=== PATIENT | male | born 1980 | race Two or more races ===

== ENCOUNTER 2024-05-29 23:22 | Inpatient (IN) | payer MEDICAID, MEDICARE, OTHER ==
[~2024-05-29] VITALS: Ht 180.3 cm; Wt 108.1 kg
[2024-05-29 23:57] LABS: Basophils # (auto) 0 10 ^3/uL (0-0.2); Basophils % (auto) 0.2 % (0.0-2.0); Eosinophils # (auto) 0.2 10 ^3/uL (0-0.8); Eosinophils % (auto) 1.6 % (0.0-7.0); Hematocrit 43.7 % (41.0-53.0); Lymphocytes # (auto) 1.7 10 ^3/uL (0.4-5.4); Lymphocytes % (auto) 13.9 % (10.0-50.0); Mean Corpuscular Hemoglobin 27.9 pg (28.0-32.0); Mean Corpuscular Hgb Conc. 32.1 g/dL (32.0-36.0); Mean Corpuscular Volume 86.8 fL (80.0-100.0); Monocytes # (auto) 0.9 10 ^3/uL (0-1.3); Monocytes % (auto) 7.6 % (0.0-12.0); Neutrophils # (auto) 9.3 10 ^3/uL (1.6-8.6); Neutrophils % (auto) 76.7 % (37.0-80.0); Nucleated Red Blood Cells % 0.1 %; Platelet Count (auto) 247 10^3/uL (140-450); Red Blood Cells 5.04 10^6/uL (4.5-5.90); Red Cell Distribution Width 16.3 % (11.8-14.3); White Blood Cell 12.1 10^3/uL (4.4-10.8)
[2024-05-29 23:58] LABS: Chloride 103 mmol/L (98-107); Potassium 3.8 mmol/L (3.5-5.1); Sodium 138 mmol/L (136-145)
[2024-05-29 23:59] LABS: Anion Gap 10 (5-15); Calcium 9.5 mg/dL (8.7-10.4); Carbon Dioxide 25 mmol/L (20-31)
[2024-05-30] VITALS (9 sets, daily range): BP systolic 99; BP diastolic 59; PULSE 107–136; RESP 12–25; O2SAT 94–100
[2024-05-30 00:04] LABS: BUN/Creatinine Ratio 26.4 (10.0-20.0)
[2024-05-30 00:05] LABS: Blood Urea Nitrogen 24 mg/dL (9-23); Glucose 187 mg/dL (74-106)
[2024-05-30] MEDS: MAALOX PLUS or MAALOX 30 ML PO ONE (00:38)
--- NOTE | 2024-05-30 01:13 | ECG ---
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
--- NOTE | 2024-05-30 01:21 | ED.PDOC ---
HPI Comments 43-year-old male with no known past medical history here today with complaints of chest pain that started approximately two days ago. Chest pain was unprovoked. Comes and goes. Nonexertional. Feels like an ache but sometimes also feels sharp. No fevers or trauma. No cough. Does not radiate. No nausea, vomiting, diarrhea. No rashes. Never had this before. Does not smoke cigarettes, drink alcohol every day, nor do drugs. No other pain or symptoms. Chief Complaint: Chest Pain Time Seen by MD: 23:35 Allergies: Coded Allergies: NO KNOWN ALLERGIES (Unverified , 05/29/24) Mode of Arrival: Ambulatory Past Medical History PAST MEDICAL HISTORY: Denies Surgical History: Denies all surgeries Constitutional: denies: chills, diaphoresis, fatigue, fever, malaise, sweats, weakness, others EENTM: denies: blurred vision, double vision, ear bleeding, ear discharge, ear drainage, ear pain, ear ringing, eye pain, eye redness, hearing loss, mouth pain, mouth swelling, nasal discharge, nose bleeding, nose congestion, nose pain, photophobia, tearing, throat pain, throat swelling, voice changes, others Respiratory: denies: cough, hemoptysis, orthopnea, SOB at rest, shortness of breath, SOB with excertion, stridor, wheezing, others Cardiovascular: reports: chest pain; denies: dizzy spells, diaphoresis, Dyspnea on exertion, edema, irregular heart beat, left arm pain, lightheadedness, palpitations, PND, syncope, others Gastrointestinal: denies: abdomen distended, abdominal pain, blood streaked bowels, constipated, diarrhea, dysphagia, difficulty swallowing, hematemesis, melena, nausea, poor appetite, poor fluid intake, rectal bleeding, rectal pain, vomiting, others Genitourinary: denies: burning, dysuria, flank pain, frequency, hematuria, incontinence, penile discharge, penile sore, pain, testicle pain, testicle swelling, urgency, others Neurological: denies: dizziness, fainting, headache, left sided numbness, left sided weakness, numbness, paresthesia, pre-existing deficit, right sided numbness, right sided weakness, seizure, speech problems, tingling, tremors, weakness, others Musculoskeletal: denies: back pain, gout, joint pain, joint swelling, muscle p ain, muscle stiffness, neck pain, others Integumetry: denies: bruises, change in color, change in hair/nails, dryness, laceration, lesions, lumps, rash, wounds, others Allergic/Immunocompromised: denies: Difficulty Healing, Frequent Infections, Hives, Itching, others Hematologic/Lymphatic: denies: anemia, blood clots, easy bleeding, easy bruising, swollen glands, others Psychiatric: denies: anxiety, bipolar disorder, depression, hopeless, panic disorder, schizophrenia, sleepless, suicidal, others Physical Exam General Appearance: No Apparent Distress, Normal HEENT: Normal ENT Inspection, Pharynx Normal, TMs Normal Neck: Full Range of Motion, Non-Tender, Normal, Normal Inspection Respiratory: Chest Non-Tender, Lungs Clear, No Accessory Muscle Use, No Respiratory Distress, Normal Breath Sounds Cardiovascular: No Edema, No JVD, No Murmur, No Gallop, Normal Peripheral Pulses, Regular Rate/Rhythm Breast Exam: Deferred Gastrointestinal: No Organomegaly, Non Tender, No Pulsatile Mass, Normal Bowel Sounds, Soft Genitalia: Deferred Pelvic: Deferred Rectal: Deferred Extremities: No calf tenderness, Normal capillary refill, Normal inspection, Normal range of motion, Non-tender, No pedal edema Musculoskeletal : Apperance: Normal Neurologic: Alert, crystal growing technician II-XII nml as Tested, No Motor Deficits, Normal Affect, Normal Mood, No Sensory Deficits Cerebellar Function: Normal Reflexes: Normal Skin: Dry, Normal Color, Warm Lymphatic: No Adenopathy Was a procedure done? Was a procedure done?: No CP Differential Dx Differential Diagnosis: A-Flutter, Angina, Anxiety / Panic Attack, AV Block 1st Degree, AV Block 2nd Degree, AV Block 3rd Degree, Electrolyte Disorder, Heart Failure, OR, PAC's, PSVT, Pulmonary Embolus, V-Fib, V-Tach, WPW Differential Diagnosis: CHF Differential Diagnosis: Aortic dissection, Esophageal reflux/spasm, Gastritis, Pericarditis X-Ray, Labs, Meds, VS Vital Signs Date Time Temp Pulse Resp B/P (MAP) Pulse Ox O2 Delivery O2 Flow Rate FiO2 05/29/24 23:53 101 05/29/24 23:25 97.8 101 20 127/81 (96) 95 Lab Test 05/30/24 00:40 05/29/24 23:40 Range/Units Troponin I High Sensitivity 57 *H 57 *H </=54 ng/L White Blood Count 12.1 H 4.4-10.8 10^3/uL Red Blood Count 5.04 4.5-5.90 10^6/uL Hemoglobin 14.0 13.5-17.5 g/dL Hematocrit 43.7 41.0-53.0 % Mean Corpuscular Volume 86.8 80.0-100.0 fL Mean Corpuscular Hemoglobin 27.9 L 28.0-32.0 pg Mean Corpuscular Hemoglobin Concent 32.1 32.0-36.0 g/dL Red Cell Distribution Width 16.3 H 11.8-14.3 % Platelet Count 247 140-450 10^3/uL Mean Platelet Volume 7.2 6.9-10.8 fL Neutrophils (%) (Auto) 76.7 37.0-80.0 % Lymphocytes (%) (Auto) 13.9 10.0-50.0 % Monocytes (%) (Auto) 7.6 0.0-12.0 % Eosinophils (%) (Auto) 1.6 0.0-7.0 % Basophils (%) (Auto) 0.2 0.0-2.0 % Neutrophils # (Auto) 9.3 H 1.6-8.6 10 ^3/uL Lymphocytes # (Auto) 1.7 0.4-5.4 10 ^3/uL Monocytes # (Auto) 0.9 0-1.3 10 ^3/uL Eosinophils # (Auto) 0.2 0-0.8 10 ^3/uL Basophils # (Auto) 0 0-0.2 10 ^3/uL Nucleated Red Blood Cells 0.1 % Sodium Level 138 136-145 mmol/L Potassium Level 3.8 3.5-5.1 mmol/L Chloride Level 103 98-107 mmol/L Carbon Dioxide Level 25 20-31 mmol/L Anion Gap 10 5-15 Blood Urea Nitrogen 24 H 9-23 mg/dL Creatinine 0.91 0.700-1.30 mg/dL Glomerular Filtration Rate Calc 106 >90 mL/min BUN/Creatinine Ratio 26.4 H 10.0-20.0 Serum Glucose 187 H 74-106 mg/dL Calcium Level 9.5 8.7-10.4 mg/dL Current Medications Medications (Trade) Dose Ordered Sig/Norberto Route Start Time Stop Time Status Last Admin Al Hydrox/Mg Hydrox/Simethicone (Maalox Plus) 30 ml ONCE ONCE PO 05/30/24 00:00 05/30/24 00:01 DC 05/30/24 00:38 X-Ray, Labs, Meds, VS Comment 43-year-old male with no past medical history here today with complaints of chest pain. Vital signs stable, afebrile. Physical exam as above no acute findings. Labs notable for an elevated troponin to the 50s with a repeat stable. EKG without evidence of STEMI although does have evidence of T-wave inversions as above. Heart score five. Patient was admitted to the hospital for further cardiac risk stratification, telemetry monitoring, and workup of his chest pain. Time of 1ST Reevaluation: 01:19 Reevaluation 1ST: Unchanged Patient Education/Counseling: Diagnosis, Treatment, Prognosis, Need For Follow Up Family Education/Counseling: Diagnosis, Treatment, Prognosis, Need For Follow Up Departure 1 Departure Time of Disposition: 01:20 Impression: Primary Impression: NSTEMI (non-ST elevated myocardial infarction) Disposition: 02 SHORT TERM HOSPITAL Admit to: Tele Condition: Guarded Critical Care Note Critical Care Time?: No Stability Stability form required: No Heart Score Heart Score: Heart Score Response (Comments) Value History Moderate Suspicious 1 EKG Repolarization Disturb 1 Age 45-64 1 Risk Factors 1 or 2 risk factors (Obesity) 1 Troponin 1-2 x's Normal limit 1 Total 5 SOLO GRIDER MD May 30, 2024 01:20
[2024-05-30] MEDS ORDERED: NITROGLYCERIN 0.4 MG SL TAB SL PRN (01:45)
[2024-05-30] MEDS ORDERED: ACETAMINOPHEN 325 MG TAB PO PRN (01:45)
--- NOTE | 2024-05-30 02:01 | DVHHPRES ---
History of Present Illness Resident Creating Document: ASIYA PRUITT RESIDENT History of Present Illness Chava Menezes is a 43-year-old male with a PMH of rheumatoid arthritis, hyperlipidemia, lung nodule presented to the ED with a chief complaint chest pain since one day. Patient reported he has been having correlate, dry cough, mild shortness of breath for last three days but Thursday evening 5:00 p.m. patient is watching television then started having chest pain, left-sided, sharp, 8/10 intensity, aggravated by deep breaths, no relieving factors, no radiation associated with diaphoresis. Patient has never experienced pain like this before. On my assessment patient denies fever, nausea, vomiting, diarrhea, palpitations, abdominal pain, and other associated symptoms. PMH: RA vs Gout, HLD, lung nodule PSH: Spinal fusion Family history: Heart disease, ESRD, diabetes in father Social history: Lives with family. Smokes less than one pack for 27 years and vapes. But denies alcohol and other drug abuse Allergies: No known allergies Home medications: Prednisone 20 mg BID, allopurinol, colchicine 0.6 OD Review of Systems Review of Systems Patient seen and examined at the bedside. Currently patient reporting chest pain, shortness of breath, dry cough, nasal congestion Constitutional: Yes: Weakness Eyes: No: Pain, Vision change, Conjunctivae inflammation, Eyelid inflammation, Other, Redness ENT: No: Ear pain, Ear discharge, Nose pain, Nose discharge, Nose congestion, Mouth pain, Mouth swelling, Throat pain, Throat swelling, Other Respiratory: Cough, Dry, Shortness of breath Cardiovascular: Chest Pain, Edema Gastrointestinal: No: Nausea, Vomiting, Abdominal Pain, Diarrhea, Constipation, Melena, Hematochezia, Other Genitourinary: No Dysuria, No Frequency, No Incontinence, No Hematuria, No Retention, No Other Musculoskeletal: No: other, neck pain, shoulder pain, arm pain, back pain, hand pain, leg pain, foot pain Skin: No: Rash, Lesions, Jaundice, Bruising, Other Neurological: No: Weakness, Numbness, Incoordination, Change in speech, Confusion, Seizures, Other Allergies: Coded Allergies: NO KNOWN ALLERGIES (Unverified , 05/29/24) Exam Vital Signs Vital Signs Date Time Temp Pulse Resp B/P (MAP) Pulse Ox O2 Delivery O2 Flow Rate FiO2 05/30/24 01:17 107 17 99 Room Air* 0 21 05/30/24 01:16 98.4 122/86 (98) 98.4 Exam General: Awake, alert, comfortable appearing, Mild distress. HEENT: Head is normocephalic and atraumatic. Pupils are equal, round, and reactive to light. Extraocular muscles are intact. No nasal discharge. No facial trauma. Intraoral exam shows moist mucous membranes with no tonsillar enlargement or exudate. Neck: Supple with no cervical lymphadenopathy No meningismus. No goiter. Heart: Regular rate without murmur, rub, or gallop. Lungs: Equal breath sounds bilaterally with no wheezing, rales, or rhonchi. There is no chest wall tenderness or instability. Abdomen: No external sign of injury. Bowel sounds are present. Abdomen is soft, nontender. No rebound, no guarding, no rigidity. There are no palpable masses. There is no flank pain on exam. Extremities: Trace edema in BLE. Strong peripheral pulses. There is no clubbing, no cyanosis Skin: No rash. Neurologic: No motor, sensory, or cerebellar deficit, no asterixis. Labs/Xrays Labs Test 05/30/24 00:40 05/29/24 23:40 Range/Units Troponin I High Sensitivity 57 *H </=54 ng/L White Blood Count 12.1 H 4.4-10.8 10^3/uL Red Blood Count 5.04 4.5-5.90 10^6/uL Hemoglobin 14.0 13.5-17.5 g/dL Hematocrit 43.7 41.0-53.0 % Mean Corpuscular Volume 86.8 80.0-100.0 fL Mean Corpuscular Hemoglobin 27.9 L 28.0-32.0 pg Mean Corpuscular Hemoglobin Concent 32.1 32.0-36.0 g/dL Red Cell Distribution Width 16.3 H 11.8-14.3 % Platelet Count 247 140-450 10^3/uL Mean Platelet Volume 7.2 6.9-10.8 fL Neutrophils (%) (Auto) 76.7 37.0-80.0 % Lymphocytes (%) (Auto) 13.9 10.0-50.0 % Monocytes (%) (Auto) 7.6 0.0-12.0 % Eosinophils (%) (Auto) 1.6 0.0-7.0 % Basophils (%) (Auto) 0.2 0.0-2.0 % Neutrophils # (Auto) 9.3 H 1.6-8.6 10 ^3/uL Lymphocytes # (Auto) 1.7 0.4-5.4 10 ^3/uL Monocytes # (Auto) 0.9 0-1.3 10 ^3/uL Eosinophils # (Auto) 0.2 0-0.8 10 ^3/uL Basophils # (Auto) 0 0-0.2 10 ^3/uL Nucleated Red Blood Cells 0.1 % Sodium Level 138 136-145 mmol/L Potassium Level 3.8 3.5-5.1 mmol/L Chloride Level 103 98-107 mmol/L Carbon Dioxide Level 25 20-31 mmol/L Anion Gap 10 5-15 Blood Urea Nitrogen 24 H 9-23 mg/dL Creatinine 0.91 0.700-1.30 mg/dL Glomerular Filtration Rate Calc 106 >90 mL/min BUN/Creatinine Ratio 26.4 H 10.0-20.0 Serum Glucose 187 H 74-106 mg/dL Calcium Level 9.5 8.7-10.4 mg/dL Assessment/Plan Assessment/Plan # rule out ACS # ? NSTEMI likely type 2 -troponins mildly elevated -reviewed EKG showed normal sinus rhythm -chest pain protocol ordered # possible opioid withdrawal versus cocaine withdrawal # opiate and cocaine abuse disorder -UDS positive -supportive treatment # Possible sepsis # R/o G+/- bacterial PNA # rule out flu and COVID-19 -ordered CXR and rapid test -ordered sputum and blood cultures -currently giving azithromycin # history of RA versus gout # uncontrolled type 2 DM with HbA1c 6.7 newly diagnosed -Accu-Cheks and mild ISS Protonix Lovenox Cardiac diet Goals of care discussed with the patient for more than 29 minutes: Full code status Case discussed with Dr. Hawley, patient, spouse and nurse Plan discussed with: Patient, Spouse My Orders Orders - ASIYA PRUITT RESIDENT Procedure Category Date Status Time Admit ADMIT 05/30/24 Transmitted 01:35 Allergies ROBERT 05/30/24 In Process 01:35 Code Status CODE 05/30/24 Transmitted 01:35 Sodium Chloride Lock PHA 05/30/24 In Process (Saline Lock Ns) 06:00 Ondansetron Hcl PHA 05/30/24 In Process (Zofran) 01:45 Enoxaparin Sodium PHA 05/30/24 In Process (Lovenox) 10:00 Complete Blood Count LAB 05/30/24 Logged 04:00 Comprehensive LAB 05/30/24 Logged Metabolic Panel 04:00 Cardiac DIET 05/30/24 Transmitted Diet-2gna,Lofat,Lochol Breakfast Echo 2d Mode Cardiac US 05/30/24 Logged DOP 01:35 Condition: Stable ROBERT 05/30/24 In Process 01:35 Acetaminophen Tablet PHA 05/30/24 In Process (Tylenol Tablet) 01:45 Morphine Sulfate PHA 05/30/24 In Process Injection 01:45 Nitroglycerin PHA 05/30/24 In Process Sublingual (Ntrostat 01:45 Morphine Sulfate PHA 05/30/24 In Process Injection 01:45 Oxygen By Nasal RT 05/30/24 Transmitted Cannula 01:35 Stat Ekg For Chest ROBERT 05/30/24 In Process Pain 01:35 Notify Of Changes ROBERT 05/30/24 In Process From Base 01:35 Auction Clerk For ROBERT 05/30/24 In Process 24 Hours 01:35 Emergency Dysrhythmia ROBERT 05/30/24 In Process Protocol 01:35 Rhythm Strips Once ROBERT 05/30/24 In Process Every Shift 01:35 Hepatic Panel LAB 05/30/24 In Process 01:35 B-Type Natriuretic LAB 05/30/24 In Process Peptide 01:35 Blood Alcohol LAB 05/30/24 In Process 01:35 Covid19 Antigen Noemy LAB 05/30/24 Logged Drug Screen LAB 05/30/24 Logged 01:35 Hemoglobin A1c LAB 05/30/24 In Process 01:35 Lactic Acid W/ Reflex LAB 05/30/24 Logged Order 01:35 Magnesium LAB 05/30/24 In Process 01:35 PTPTT LAB 05/30/24 In Process 01:35 Rapid Influenza A&B LAB 05/30/24 Logged 01:35 Thyroid Stimulating LAB 05/30/24 In Process Hormone 01:35 Urinalysis LAB 05/30/24 Logged 01:35 Lipid Panel LAB 05/30/24 In Process 01:35 Chest Xray 1 View XY 05/30/24 Logged 01:35 Respiratory Culture CRISTINA 05/30/24 Logged W/ Gs 01:35 Blood Culture CRISTINA 05/30/24 Logged 01:35 Pantoprazole PHA 05/30/24 In Process (Protonix) 01:45 Date of Service: May 30, 2024 Billing Provider: RAFA HAWLEY MD Common Visit Codes: [id number] INP/OBS CARE (HIGH) ASIYA PRUITT RESIDENT May 30, 2024 02:01 RAFA HAWLEY MD May 30, 2024 10:34
[2024-05-30] MEDS: ASPirin 81 mg TAB PO ONE (02:12)
[2024-05-30] MEDS: MORPHINE SULFATE INJ 2 MG/ml SYRG IV PRN ×2 (02:12→12:01)
[2024-05-30 02:14] LABS: INR 0.94 (0.9-1.15); Partial Thromboplastin Time 23.4 SEC (24.5-34.5)
[2024-05-30] MEDS: AZITHROMYCIN 500MG/ 250ML 250 ML IV ONE (02:15)
[2024-05-30 02:18] LABS: Alanine Aminotransferase 31 U/L (7-40); Albumin 4.2 g/dL (3.2-4.8); Alkaline Phosphatase 84 U/L (46-116); Bilirubin, Direct 0.2 mg/dL (<0.3); Cholesterol 132 mg/dL (< 200); HDL Cholesterol 42 mg/dL (40-59); LDL Cholesterol 72 mg/dL (< 100); Magnesium 2.2 mg/dL (1.6-2.6); Total Protein 6.2 g/dL (5.7-8.2)
[2024-05-30 02:19] LABS: Aspartate Aminotransferase 11 U/L (13-40); Bilirubin, Total 0.5 mg/dL (0.2-1.0); Blood Alcohol < 3.0 mg/dL (<10); Triglycerides 249 mg/dL (< 150)
[2024-05-30] MEDS: PANTOPRAZOLE 40 MG/10 ML VIAL INJ IV SCH (02:21)
--- NOTE | 2024-05-30 02:33 | DVH ---
CHEST RADIOGRAPH Indication: chest pain Technique: Single frontal view of the chest was obtained Comparison: None IMPRESSION: Heart appears enlarged. The lungs appear clear without focal airspace opacity, effusion, or pneumoth orax
[2024-05-30 02:39] LABS: Lactic Acid w/Reflex 2.5 mmol/L (0.4-2.0)
[2024-05-30 02:39] LABS: Urine Bacteria None Seen /hpf (None Seen)
[2024-05-30 02:55] LABS: Urine Blood Negative /uL (Negative); Urine Clarity Clear (Clear); Urine Color Yellow (Yellow); Urine Hyaline Cast FEW /lpf (0 - 2); Urine Mucus FEW (None Seen); Urine Protein, UAD TRACE (Negative); Urine Specific Gravity 1.031 (1.001-1.035); Urine Squamous Epithelial Cell None Seen /hpf (<5); Urine Urobilinogen Normal (Negative); Urine pH 5.5 (5.0-9.0)
[2024-05-30] MEDS ORDERED: DEXTROSE (50%) 50ML SYRG IV PRN (03:00)
[2024-05-30 03:01] LABS: Basophils # (auto) 0 10 ^3/uL (0-0.2); Basophils % (auto) 0.2 % (0.0-2.0); Eosinophils # (auto) 0.1 10 ^3/uL (0-0.8); Eosinophils % (auto) 0.5 % (0.0-7.0); Hematocrit 42.2 % (41.0-53.0); Hemoglobin 13.7 g/dL (13.5-17.5); Lymphocytes # (auto) 1.8 10 ^3/uL (0.4-5.4); Lymphocytes % (auto) 14.9 % (10.0-50.0); Mean Corpuscular Hgb Conc. 32.4 g/dL (32.0-36.0); Mean Corpuscular Volume 86.3 fL (80.0-100.0); Monocytes # (auto) 1.2 10 ^3/uL (0-1.3); Monocytes % (auto) 9.4 % (0.0-12.0); Neutrophils # (auto) 9.2 10 ^3/uL (1.6-8.6); Nucleated Red Blood Cells % 0.2 %; Platelet Count (auto) 250 10^3/uL (140-450); Red Blood Cells 4.89 10^6/uL (4.5-5.90); Red Cell Distribution Width 16.6 % (11.8-14.3); White Blood Cell 12.3 10^3/uL (4.4-10.8)
[2024-05-30 03:02] LABS: Erythrocyte Sedimentation Rate 7 mm/hr (0-20)
[2024-05-30 03:14] LABS: Amphetamine Screen, Urine Neg (NEGATIVE); Phencyclidine Screen, Urine Neg (NEGATIVE)
[2024-05-30 03:15] LABS: Barbiturate Scree,Urine Neg (NEGATIVE); Benzodiazephine Screen, Urine Neg (NEGATIVE); Cannabinoid Screen, Urine Neg (NEGATIVE); Cocaine Screen, Urine Pos (NEGATIVE); Opiate Scree,Urine Pos (NEGATIVE)
[2024-05-30] MEDS: SODIUM CHLORIDE 0.9% 1,000 ML IV SCH (03:29)
[2024-05-30 03:36] LABS: Alanine Aminotransferase 34 U/L (7-40); Albumin 4.2 g/dL (3.2-4.8); Alkaline Phosphatase 84 U/L (46-116); Anion Gap 14 (5-15); BUN/Creatinine Ratio 26.9 (10.0-20.0); Calcium 9.6 mg/dL (8.7-10.4); Carbon Dioxide 21 mmol/L (20-31); Chloride 104 mmol/L (98-107); Potassium 3.9 mmol/L (3.5-5.1); Sodium 139 mmol/L (136-145); Total Protein 6.3 g/dL (5.7-8.2)
[2024-05-30 03:37] LABS: Bilirubin, Total 0.5 mg/dL (0.2-1.0)
[2024-05-30 03:49] LABS: Aspartate Aminotransferase 13 U/L (13-40); Blood Urea Nitrogen 25 mg/dL (9-23); Glucose 188 mg/dL (74-106)
[2024-05-30] MEDS: SODIUM CHLOR 0.9% PF (SALINE LOCK) 10ML VIAL/SYR IV SCH (06:02)
[2024-05-30] MEDS: InsuLIN REG 1unit/0.01ml Soln (100units/ml) SC SCH (06:26)
[2024-05-30] MEDS: ACCU-CHEK COMFORT CURVE STRIP VI SCH (06:27)
[2024-05-30] MEDS: LORazepam 2MG/ML-1ML VIAL IV PRN (06:41)
[2024-05-30 08:49] LABS: COVID19 ANTIGEN SOFIA FIA NEGATIVE (NEGATIVE)
[2024-05-30 08:50] LABS: Rapid Influenza A Negative (Negative); Rapid Influenza B Negative (Negative)
[2024-05-30] MEDS ORDERED: LEVALBUTEROL HCL 1.25 MG/3 ML NEB NEB SCH (09:00)
[2024-05-30] MEDS ORDERED: IPRATROPIUM BROM 0.5 MG/2.5ML INH SOL NEB SCH (09:00)
[2024-05-30] MEDS ORDERED: AZITHROMYCIN 500MG/ 250ML 250 ML IV SCH (10:00)
--- NOTE | 2024-05-30 10:22 | DVH ---
XY KUB ABDOMEN SINGLE VIEW HISTORY: sbo TECHNICAL DATA: 1 view of the abdomen. COMPARISON: None FINDINGS: Patchy gas is identified within nondistended small bowel. There are no dilated small bowel loops. The re is no abdominal mass effect. The renal and liver shadows are not enlarged. Lumbar spine hardware i s seen. IMPRESSION: Nondilated non obstructive bowel gas pattern.
[2024-05-30] MEDS: ENOXAPARIN SOD 40 MG/0.4 ML SYRINGE SC SCH (10:24)
[2024-05-30 10:34] LABS: Lactic Acid w/Reflex 2.6 mmol/L (0.4-2.0)
--- NOTE | 2024-05-30 10:42 | DVH ---
BILATERAL LOWER EXTREMITY VENOUS DOPPLER CLINICAL HISTORY: r/o dvt Technique: Duplex Doppler evaluation of the deep venous systems of both lower extremities from the co mmon femoral veins to the popliteal veins including color Doppler and spectral/pulsed waveform analys is was performed. COMPARISON: None FINDINGS: The right and left common femoral, superficial femoral, popliteal, posterior tibial veins and trifur cations appear patent with normal augmentation, phasicity, compressibility and color-flow. IMPRESSION: 1. There is no sonographic evidence for DVT in the lower extremities. HS:Y
--- NOTE | 2024-05-30 11:25 | DVHSR ---
APPROVED REPORT EXAM: Two-dimensional and M-mode echocardiogram with Doppler and color Doppler. Blood Pressure: 104/64 mmHg INDICATION To rule out structural heart disease RISK FACTORS Height: 70, Weight: 240 DIMENSIONS LVDd (3.8-5.7cm)LA (2D)4.1 (1.9-4.0cm)Aortic Root4.1 (2.0-3.7cm) LVDs (2.5-4.0cm)LA (MM) (1.9-4.0cm)Aortic Cusp Exc2.1 (1.5-2.0cm) EF (%) 65.0 (55-70%)Rt. Atrium4.0 (1.9-4.0cm)Asc. Aorta cm Mitral Valve MitralMitral Stenosis E wave0.73m/sMV Mean GR.mmHg A wave0.90m/sMV Peak GR.mmHg E/A ratio0.82D MVAcm2 DECEL [id number] 1/2 Njly70dg IVRTmsDop MVA6.60cm2 Aortic Valve Aortic ValveAortic Stenosis V1m/Leilani Mean GR.12mmHg V22.31m/Leilani Peak GR.23mmHg LVOT Diameter2.1 (1.8-2.4cm)Doppler AVAcm2 Pulmonic Valve V21.27m/s Other Information Technically limited study due to body habitus, patient position. Patient was non compliant and kept moving during exam. Conclusion lvef 70% by visual estimate milde LVH normal rv function normal atria no severe valve abnormalities noted
[2024-05-30] MEDS: LEVALBUTEROL HCL 1.25 MG/3 ML NEB NEB SCH (11:51)
[2024-05-30] MEDS: IPRATROPIUM BROM 0.5 MG/2.5ML INH SOL NEB SCH (11:51)
[2024-05-30] MEDS: ONDANSETRON HCL 4 MG/2 ML VIAL IV PRN (12:01)
[2024-05-30] MEDS: cefTRIAXone 1GM/50ML D5W 50 ML IV SCH (12:59)
--- NOTE | 2024-05-30 14:15 | DVHPNRES ---
Progress Note Date Seen: May 30, 2024 Resident Creating Document: NAN THAKUR RESIDENT Medical Necessity Reason Pt with a Central, PICC or Fol: No Subjective Review of Systems Mr. Dean is a 43-year-old male with PMH of spinal fusion surgery 2009, chronic opioid use, rheumatoid arthritis, gout, solitary pulmonary nodule and hyperlipidemia who presented to the ER with a chief complaint of chest pain and shortness of breaths for the past 2 days. He reports using cocaine, last usage was 1 week back. He takes Randall 10/325 mg 4-5 times a day. Patient reports shortness of breaths along with productive greenish cough, orthopnea, paroxysmal nocturnal dyspnea. He sleeps in a recliner per the . also reports snoring. Associated symptoms include generalized fatigue, body ache, tiredness. Patient also reports chest pain, left-sided, sharp in nature increased by deep breaths, no radiation but he has been experiencing diaphoresis. PMH/PSH : See above.. Home medications: Prednisolone 20 mg b.i.d., allopurinol, colchicine 0.6 mg Social history: Lives family, smokes a pack a day for more than 20 years, denies drinking, has been using cocaine, last usage was 1 week back. The patient was previously sober for at least 3 years. Patient seen and examined at the bedside. at the bedside. Telemetry reviewed, shows sinus tachycardia. COVID influenza negative. Started ceftriaxone and azithromycin for likely pneumonia. Nebulized treatment started. Objective vital signs Vital Sign Date Time Temp Pulse Resp B/P (MAP) Pulse Ox O2 Delivery O2 Flow Rate FiO2 05/30/24 12:31 123 16 92/46 05/30/24 12:00 95 05/30/24 11:52 0.0 21 05/30/24 11:51 Room Air 05/30/24 11:00 98.0 98.0 Total Intake and Output 05/29/24 05/29/24 05/30/24 15:00 23:00 07:00 Intake Total 650 ml Balance 650 ml medications Current Medications Medications Dose Ordered Sig/Norberto Route Start Time Stop Time Status Last Admin Dose Admin Sodium Chloride 10 ml Q8HR IV 05/30/24 06:00 05/30/24 13:00 10 ML Ondansetron HCl 4 mg Q4HP PRN IV 05/30/24 01:45 05/30/24 12:01 4 MG Enoxaparin Sodium 40 mg DAILY SC 05/30/24 10:00 05/30/24 10:24 40 MG Acetaminophen 650 mg Q6HP PRN PO 05/30/24 01:45 Morphine Sulfate 2 mg Q4HPRN PRN IV 05/30/24 01:45 05/30/24 12:01 2 MG Nitroglycerin 0.4 mg Q5MINP PRN SL 05/30/24 01:45 Morphine Sulfate 2 mg Q30M PRN IV 05/30/24 01:45 05/30/24 02:12 2 MG Pantoprazole Sodium 40 mg DAILY IV 05/30/24 01:45 05/30/24 10:22 40 MG Diagnostic Test (Pha) 1 strip ACHS 05/30/24 07:00 05/30/24 11:30 1 STRIP Insulin Human Regular ACHS SC 05/30/24 07:00 Dextrose 50 ml UD PRN IV 05/30/24 03:00 Sodium Chloride 1,000 ml @ 100 mls/hr Q10H IV 05/30/24 03:00 05/30/24 12:59 100 MLS/HR Lorazepam 1 mg Q6HP PRN IV 05/30/24 06:45 05/30/24 12:04 1 MG Ipratropium [place] 0.5 mg Q6HR NEB 05/30/24 12:00 05/30/24 11:51 0.5 MG Levalbuterol HCl 0.625 mg Q6HR NEB 05/30/24 12:00 05/30/24 11:51 0.625 MG Ceftriaxone Sodium 50 ml @ 100 mls/hr DAILY@09 IV 05/30/24 12:00 05/30/24 12:59 100 MLS/HR Azithromycin 250 ml @ 125 mls/hr DAILY IV 05/31/24 10:00 Examination Patient lying in bed, in no acute distress General: Obese, afebrile, palor, mucosae are moist Cardiovascular: Regular S1 and S2. No murmurs, gallops or rubs. No JVD elevation. 2 +pitting edema Respiratory: Decreased air entry, no crackles or wheezing heard. Saturating 92 on room air Abdomen: Soft, nontender, nondistended, normoactive bowel sounds, no rebound tenderness, no organomegaly, no masses Genitourinary: Deferred MSK/skin: Mobilizes 4 limbs. Skin is dry and warm Neurological: No motor, no sensitive deficits, normal speech. Pupils are isocoric and reactive. Psych/Mental Status: A/Ox3 laboratory and microbiology Laboratory Tests 05/30/24 02:44 Test 05/30/24 02:44 Range/Units Serum Glucose 188 H 74-106 mg/dL Labs and/or images reviewed: Labs reviewed by me, Image(s) reviewed by me Problem List/Assessment/Plan Problem List/Assessment/Plan Sepsis likely secondary to pneumonia, Gram-positive and negative Acute on chronic COPD exacerbation COPD with pneumonitis Lactic acidosis IV saline 100 mL/hour Nebulized ipratropium and levalbuterol q.6 hourly scheduled Started ceftriaxone and azithromycin 05/30 Respiratory culture pending Chest pain, likely pneumonitis NSTEMI, likely type 2 Troponin 57, downtrending Echo completed 05/30/2024, shows LVEF 70% by visual estimate. Mild LVH. No severe valvular abnormalities Possible cocaine withdrawal Opioid dependence Tele psych consulted Rheumatoid arthritis Gouty arthritis Continue home medication prednisolone 20 mg daily and colchicine 0.6 mg daily Ruled out DVT Doppler negative Uncontrolled type 2 diabetes mellitus-hemoglobin A1c 6.7-newly diagnosed Mild ISS initiated Diabetic education provided Enoxaparin 40 mg sc daily Pantoprazole 40 mg IV daily Plan discussed with patien with the spouse at bedside t in which all questions have been answered Goals of care discussed with patient for more than 26 minutes, full code status Case discussed with Dr. Barba Plan discussed with: Patient, Spouse (The bedside) My Orders My Orders Orders - NAN THAKUR Procedure Category Date Status Time *Tele Psych Consult CONS 05/30/24 Transmitted 08:54 Bilat Lower Dvt US 05/30/24 Resulted 09:00 Kub Abdomen Single XY 05/30/24 Resulted View 09:00 Ipratropium Medneb PHA 05/30/24 In Process (Atrovent Medneb) 12:00 Levalbuterol Hcl PHA 05/30/24 In Process (Xopenex Medneb) 12:00 Ceftriaxone 1gm/50ml PHA 05/30/24 In Process D5w (Rocephin) 12:00 Azithromycin 500mg/ PHA 05/31/24 In Process 250ml (Zithromax 50 10:00 NAN THAKUR May 30, 2024 14:15
[2024-05-30 14:31] LABS: Base Excess 3.7 mmol/L (-2.0-3.0)
[2024-05-30] MEDS: predniSONE 20 MG TAB PO ONE (15:01)
[2024-05-30] MEDS: COLCHICINE 0.6 MG CAP PO ONE (15:01)
[2024-05-30] MEDS: ALLOPURINOL 100 MG TAB PO ONE (16:00)
[2024-05-30] MEDS: predniSONE 20 MG TAB PO SCH (16:00)
[2024-05-31] VITALS (11 sets, daily range): BP systolic 108–120; BP diastolic 78–86; PULSE 80–120; RESP 16–19; TEMP 97.5–98.2; O2SAT 91–100
[2024-05-31 07:39] LABS: Basophils # (auto) 0 10 ^3/uL (0-0.2); Basophils % (auto) 0.2 % (0.0-2.0); Eosinophils # (auto) 0 10 ^3/uL (0-0.8); Hematocrit 42.8 % (41.0-53.0); Hemoglobin 14.3 g/dL (13.5-17.5); Lymphocytes # (auto) 0.9 10 ^3/uL (0.4-5.4); Lymphocytes % (auto) 6.6 % (10.0-50.0); Mean Corpuscular Hemoglobin 28.7 pg (28.0-32.0); Mean Corpuscular Hgb Conc. 33.4 g/dL (32.0-36.0); Monocytes # (auto) 0.4 10 ^3/uL (0-1.3); Monocytes % (auto) 3.3 % (0.0-12.0); Neutrophils # (auto) 11.9 10 ^3/uL (1.6-8.6); Neutrophils % (auto) 89.9 % (37.0-80.0); Platelet Count (auto) 275 10^3/uL (140-450); Red Blood Cells 4.97 10^6/uL (4.5-5.90); Red Cell Distribution Width 16.5 % (11.8-14.3); White Blood Cell 13.2 10^3/uL (4.4-10.8)
[2024-05-31 07:58] LABS: Alanine Aminotransferase 36 U/L (7-40); Anion Gap 10 (5-15); Calcium 9.7 mg/dL (8.7-10.4); Carbon Dioxide 24 mmol/L (20-31); Chloride 103 mmol/L (98-107); Potassium 4.3 mmol/L (3.5-5.1); Sodium 137 mmol/L (136-145)
[2024-05-31 08:00] LABS: BUN/Creatinine Ratio 13.9 (10.0-20.0); Blood Urea Nitrogen 14 mg/dL (9-23); Total Protein 6.8 g/dL (5.7-8.2)
[2024-05-31 08:01] LABS: Albumin 4.5 g/dL (3.2-4.8)
[2024-05-31 08:02] LABS: Bilirubin, Total 0.6 mg/dL (0.2-1.0)
[2024-05-31 08:14] LABS: Aspartate Aminotransferase 12 U/L (13-40); Glucose 182 mg/dL (74-106); Magnesium 2.7 mg/dL (1.6-2.6)
[2024-05-31] MEDS ORDERED: predniSONE 20 MG TAB PO SCH (10:00)
[2024-05-31 10:10] LABS: Alkaline Phosphatase 72 U/L (46-116)
[2024-05-31] MEDS ORDERED: LEVO750T40 PO (10:51)
[2024-05-31] MEDS ORDERED: ALBUAER3 IN (10:53)
[2024-05-31] MEDS ORDERED: IPRIH INH (10:53)
[2024-05-31] MEDS ORDERED: ACET-1882 PO (10:53)
[2024-05-31] MEDS ORDERED: NIC21P TOP (10:53)
[2024-05-31] MEDS ORDERED: COLC1CAP PO (11:36)
[2024-05-31] MEDS ORDERED: GABA-1250 PO (11:36)
[2024-05-31] MEDS ORDERED: ALL100T PO (11:36)
[2024-05-31] MEDS ORDERED: PRED20TA2 PO (11:36)
[2024-05-31] MEDS: COLCHICINE 0.6 MG CAP PO SCH (12:03)
[2024-05-31] MEDS: ALLOPURINOL 100 MG TAB PO SCH (12:03)
[2024-05-31] MEDS: NICOTINE 21MG/24 HR TOPICAL PATCH TD SCH (12:04)
[2024-05-31] MEDS: AZITHROMYCIN 500MG/ 250ML 250 ML IV SCH (12:25)
[2024-05-31] MEDS ORDERED: HYDROcodone-ACET 10/325MG TAB PO PRN ×2 (14:30→14:45)
--- NOTE | 2024-05-31 14:37 | ECG ---
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
--- NOTE | 2024-05-31 15:06 | DVHINCON2 ---
Date of Service if different f: May 31, 2024 Time of Service: 14:45 Consultation ([facility]) Consulting Physician: MADDY ROMERO MD Labs Laboratory Tests Test 05/29/24 23:40 05/30/24 01:55 05/30/24 01:57 05/30/24 02:38 Prothrombin Time 10.0 sec (9.3-11.8) Prothromb Time International Ratio 0.94 (0.9-1.15) Activated Partial Thromboplast Time 23.4 SEC (24.5-34.5) Hemoglobin A1c 6.7 % A1C (<5.7) Direct Bilirubin 0.2 mg/dL (<0.3) B-Type Natriuretic Peptide 8.47 pg/mL (0-100) Triglycerides Level 249 mg/dL (< 150) Cholesterol Level 132 mg/dL (< 200) LDL Cholesterol 72 mg/dL (< 100) HDL Cholesterol 42 mg/dL (40-59) Thyroid Stimulating Hormone (TSH) 2.37 uIU/mL (0.55-4.78) Plasma/Serum Blood Alcohol < 3.0 mg/dL (<10) D-Dimer, Quantitative 0.33 mg/L FEU (0.0-0.49) Erythrocyte Sedimentation Rate 7 mm/hr (0-20) C-Reactive Protein High Sensitivity 1.20 mg/dL (<1.0) Urine Color Yellow (Yellow) Urine Clarity Clear (Clear) Urine pH 5.5 (5.0-9.0) Urine Specific [place] 1.031 (1.001-1.035) Urine Protein Trace (Negative) Urine Ketones Negative (Negative) Urine Blood Negative /uL (Negative) Urine Nitrite Negative (Negative) Urine Bilirubin Negative (Negative) Urine Urobilinogen Normal mg/dL (Negative) Urine Leukocyte Esterase Negative /uL (Negative) Urine RBC None seen /hpf (0 - 3) Urine Microscopic WBC /HPF (0-3) Urine Squamous Epithelial Cells None seen /hpf (<5) Urine Bacteria None seen /hpf (None Seen) Urine Hyaline Casts Few /lpf (0 - 2) Urine Mucus Few (None Seen) Urine Glucose Normal mg/dL (Normal) Urine Opiates Screen Pos (NEGATIVE) Urine Fentanyl Screen Neg (NEGATIVE) Urine Barbiturates Screen Neg (NEGATIVE) Urine Phencyclidine Screen Neg (NEGATIVE) Urine Amphetamines Screen Neg (NEGATIVE) Urine Benzodiazepines Screen Neg (NEGATIVE) Urine Cocaine Screen Pos (NEGATIVE) Urine Cannabinoids Screen Neg (NEGATIVE) Test 05/30/24 02:44 05/30/24 07:49 05/30/24 14:27 05/30/24 15:50 Troponin I High Sensitivity 53 ng/L (</=54) Influenza Type A Antigen Negative (Negative) Influenza Type B Antigen Negative (Negative) SARS-CoV-2 Antigen (Rapid) Negative (NEGATIVE) Blood Gas Specimen Type Arterial Blood Gas Sample Site Right radial Blood Gas Patient Temperature 37.0 Arterial Blood Date Drawn [id number] Arterial Blood pH 7.489 (7.350-7.450) Arterial Blood Partial Pressure CO2 36.1 mmHg (35.0-48.0) Arterial Blood Partial Pressure O2 66.1 mmHg (83.0-108.0) Arterial Blood HCO3 26.8 mmol/L (21.0-28.0) Arterial Blood Oxygen Saturation 94.3 % (94.0-98.0) Arterial Blood Base Excess 3.7 mmol/L (-2.0-3.0) Arterial Blood Oxyhemoglobin 92.8 % (94.0-98.0) Arterial Blood Carboxyhemoglobin 1.0 % (0.5-1.5) Arterial Blood Methemoglobin 0.6 % (0.0-1.5) Derrek Test Yes Blood Gas Total Hemoglobin 14.90 g/dL (13.5-17.5) Blood Gas Modality Room air FiO2 % 21.0 Lactic Acid Level 1.6 mmol/L (0.4-2.0) Test 05/30/24 17:58 05/31/24 05:20 Bedside Glucose 213 mg/dl (70-106) White Blood Count 13.2 10^3/uL (4.4-10.8) Red Blood Count 4.97 10^6/uL (4.5-5.90) Hemoglobin 14.3 g/dL (13.5-17.5) Hematocrit 42.8 % (41.0-53.0) Mean Corpuscular Volume 86.0 fL (80.0-100.0) Mean Corpuscular Hemoglobin 28.7 pg (28.0-32.0) Mean Corpuscular Hemoglobin Concent 33.4 g/dL (32.0-36.0) Red Cell Distribution Width 16.5 % (11.8-14.3) Platelet Count 275 10^3/uL (140-450) Mean Platelet Volume 7.7 fL (6.9-10.8) Neutrophils (%) (Auto) 89.9 % (37.0-80.0) Lymphocytes (%) (Auto) 6.6 % (10.0-50.0) Monocytes (%) (Auto) 3.3 % (0.0-12.0) Eosinophils (%) (Auto) 0.0 % (0.0-7.0) Basophils (%) (Auto) 0.2 % (0.0-2.0) Neutrophils # (Auto) 11.9 10 ^3/uL (1.6-8.6) Lymphocytes # (Auto) 0.9 10 ^3/uL (0.4-5.4) Monocytes # (Auto) 0.4 10 ^3/uL (0-1.3) Eosinophils # (Auto) 0 10 ^3/uL (0-0.8) Basophils # (Auto) 0 10 ^3/uL (0-0.2) Nucleated Red Blood Cells 0.0 % Sodium Level 137 mmol/L (136-145) Potassium Level 4.3 mmol/L (3.5-5.1) Chloride Level 103 mmol/L (98-107) Carbon Dioxide Level 24 mmol/L (20-31) Anion Gap 10 (5-15) Blood Urea Nitrogen 14 mg/dL (9-23) Creatinine 1.01 mg/dL (0.700-1.30) Glomerular Filtration Rate Calc 93 mL/min (>90) BUN/Creatinine Ratio 13.9 (10.0-20.0) Serum Glucose 182 mg/dL (74-106) Calcium Level 9.7 mg/dL (8.7-10.4) Magnesium Level 2.7 mg/dL (1.6-2.6) Total Bilirubin 0.6 mg/dL (0.2-1.0) Aspartate Amino Transf (AST/SGOT) 12 U/L (13-40) Alanine Aminotransferase (ALT/SGPT) 36 U/L (7-40) Alkaline Phosphatase 72 U/L (46-116) Total Protein 6.8 g/dL (5.7-8.2) Albumin 4.5 g/dL (3.2-4.8) Microbiology Date/Time Source Procedure Growth Status 05/30/24 01:57 Blood Blood Culture - Preliminary NO GROWTH AFTER 24 HOURS OF INCUBATION. Resulted Appearance: Stated age Psychomotor activity: WNL Behavioral: Cooperative Eye contact: Appropriate Speech: WNL Affect: Appropriate Mood: Euthymic Thought processes: Linear/Goal-directed Suicidal ideations: Absent Homicidal ideations: Absent Orientation: Person, Place, Time, Situation Memory intact: Recent Intellect: Average Abstractability: WNL Concentration: Adequate Attention: Adequate Judgement: WNL Insight: Good Vitals Vital Signs Date Time Temp Pulse Resp B/P (MAP) Pulse Ox O2 Delivery O2 Flow Rate FiO2 05/31/24 12:09 95 16 100 05/31/24 12:03 Nasal Cannula 2.0 05/31/24 12:03 28 05/31/24 11:00 97.8 120/80 (93) 97.8 Current medications Current Medications Medications Dose Ordered Sig/Norberto Route Start Time Stop Time Status Last Admin Dose Admin Sodium Chloride 10 ml Q8HR IV 05/30/24 06:00 05/31/24 06:08 10 ML Ondansetron HCl 4 mg Q4HP PRN IV 05/30/24 01:45 05/30/24 12:01 4 MG Enoxaparin Sodium 40 mg DAILY SC 05/30/24 10:00 05/31/24 12:03 40 MG Acetaminophen 650 mg Q6HP PRN PO 05/30/24 01:45 Morphine Sulfate 2 mg Q4HPRN PRN IV 05/30/24 01:45 05/30/24 22:03 2 MG Nitroglycerin 0.4 mg Q5MINP PRN SL 05/30/24 01:45 Morphine Sulfate 2 mg Q30M PRN IV 05/30/24 01:45 05/30/24 02:12 2 MG Pantoprazole Sodium 40 mg DAILY IV 05/30/24 01:45 05/31/24 12:03 40 MG Diagnostic Test (Pha) 1 strip ACHS 05/30/24 07:00 05/31/24 06:53 1 STRIP Insulin Human Regular ACHS SC 05/30/24 07:00 05/30/24 22:02 6 UNITS Dextrose 50 ml UD PRN IV 05/30/24 03:00 Sodium Chloride 1,000 ml @ 100 mls/hr Q10H IV 05/30/24 03:00 05/31/24 09:22 100 MLS/HR Lorazepam 1 mg Q6HP PRN IV 05/30/24 06:45 05/30/24 22:25 1 MG Ipratropium [place] 0.5 mg Q6HR NEB 05/30/24 12:00 05/31/24 12:03 0.5 MG Levalbuterol HCl 0.625 mg Q6HR NEB 05/30/24 12:00 05/31/24 12:03 0.625 MG Ceftriaxone Sodium 50 ml @ 100 mls/hr DAILY@09 IV 05/30/24 12:00 05/31/24 09:22 100 MLS/HR Azithromycin 250 ml @ 125 mls/hr DAILY IV 05/31/24 10:00 05/31/24 12:25 125 MLS/HR Colchicine 0.6 mg DAILY PO 05/31/24 10:00 05/31/24 12:03 0.6 MG Prednisone 20 mg BID PO 05/30/24 14:45 05/31/24 12:03 20 MG Allopurinol 100 mg DAILY PO 05/31/24 10:00 05/31/24 12:03 100 MG Nicotine 1 patch DAILY TD 05/31/24 10:00 Treatment plan discussed: With staff Medication adjusted: No Labs ordered: No Psychotherapy provided: No Type: Voluntary History of Present Illness Reason for Consult : psychiatric evaluation PER H&P: Chava Menezes is a 43-year-old male with a PMH of rheumatoid arthritis, hyperlipidemia, lung nodule presented to the ED with a chief complaint chest pain since one day. Patient reported he has been having correlate, dry cough, mild shortness of breath for last three days but Thursday evening 5:00 p.m. patient is watching television then started having chest pain, left-sided, sharp, 8/10 intensity, aggravated by deep breaths, no relieving factors, no radiation associated with diaphoresis. Patient has never experienced pain like this before. On my assessment patient denies fever, nausea, vomiting, diarrhea, palpitations, abdominal pain, and other associated symptoms. PSYCHIATRIST HPI: The patient was seen and evaluated at [facility] via telepsychiatry platform. 43 yr old male reported that he doesn't feel like depression is affecting him now. He denied having anxiety symptoms and feels like he has been okay. He denied having anxiety attacks. He stated he will get hot and sweaty sometimes, but that goes away not in relation to anything in particular. He noted he uses [place] daily for pain in his back and hands. He denied any other substance use other than for pain control. He denied having suicidal and homicidal ideation and denied auditory and visual hallucinations. Past Psychiatric History: Diagnosed with depression in 2010 after back surgery, he had been on medication because the back was affecting his work and family. Current psych medications: none Past Medical History : RA, hyperlipidemia, three spinal fusions, gout Substance use: Uses opiates daily (norco) for back pain. Denied use of alcohol or other substances Social History : Lives with family. DIAGNOSIS: Chronic pain Formulation: This 43 yr old male appears to suffer from chronic pain for which he regularly takes opiates. He does not appear to suffer from depression, anxiety or other mental illness. Plan: 1. Safety. The patient is a low risk for self harm and may be managed as an outpatient. 2. Legal-voluntary. 3. Medications: none indicated at this time. If chronic pain continues to be an issue, duloxetine 30mg qam could help reduce the pain. 4. Case discussed with STALIN Soto. 5. Please recontact psychiatry for further follow up or reevaluation. Assessment/Diagnosis/Plan Reviewed: Labs, Medications, Previous Orders MADDY ROMERO MD May 31, 2024 13:56
--- NOTE | 2024-05-31 15:43 | DVHDSRES ---
Discharge Summary Date of Admission Resident Creating Document: NAN THAKUR RESIDENT May 30, 2024 at 01:35 Date of Discharge: May 31, 2024 Labs/Diagnostic Data: Laboratory Results Test 05/31/24 05:20 05/30/24 17:58 05/30/24 15:50 05/30/24 14:27 White Blood Count 13.2 10^3/uL (4.4-10.8) Red Blood Count 4.97 10^6/uL (4.5-5.90) Hemoglobin 14.3 g/dL (13.5-17.5) Hematocrit 42.8 % (41.0-53.0) Mean Corpuscular Volume 86.0 fL (80.0-100.0) Mean Corpuscular Hemoglobin 28.7 pg (28.0-32.0) Mean Corpuscular Hemoglobin Concent 33.4 g/dL (32.0-36.0) Red Cell Distribution Width 16.5 % (11.8-14.3) Platelet Count 275 10^3/uL (140-450) Mean Platelet Volume 7.7 fL (6.9-10.8) Neutrophils (%) (Auto) 89.9 % (37.0-80.0) Lymphocytes (%) (Auto) 6.6 % (10.0-50.0) Monocytes (%) (Auto) 3.3 % (0.0-12.0) Eosinophils (%) (Auto) 0.0 % (0.0-7.0) Basophils (%) (Auto) 0.2 % (0.0-2.0) Neutrophils # (Auto) 11.9 10 ^3/uL (1.6-8.6) Lymphocytes # (Auto) 0.9 10 ^3/uL (0.4-5.4) Monocytes # (Auto) 0.4 10 ^3/uL (0-1.3) Eosinophils # (Auto) 0 10 ^3/uL (0-0.8) Basophils # (Auto) 0 10 ^3/uL (0-0.2) Nucleated Red Blood Cells 0.0 % Sodium Level 137 mmol/L (136-145) Potassium Level 4.3 mmol/L (3.5-5.1) Chloride Level 103 mmol/L (98-107) Carbon Dioxide Level 24 mmol/L (20-31) Anion Gap 10 (5-15) Blood Urea Nitrogen 14 mg/dL (9-23) Creatinine 1.01 mg/dL (0.700-1.30) Glomerular Filtration Rate Calc 93 mL/min (>90) BUN/Creatinine Ratio 13.9 (10.0-20.0) Serum Glucose 182 mg/dL (74-106) Calcium Level 9.7 mg/dL (8.7-10.4) Magnesium Level 2.7 mg/dL (1.6-2.6) Total Bilirubin 0.6 mg/dL (0.2-1.0) Aspartate Amino Transferase (AST) 12 U/L (13-40) Alanine Aminotransferase (ALT) 36 U/L (7-40) Alkaline Phosphatase 72 U/L (46-116) Total Protein 6.8 g/dL (5.7-8.2) Albumin 4.5 g/dL (3.2-4.8) POC Glucose 213 mg/dl (70-106) Lactic Acid Level 1.6 mmol/L (0.4-2.0) Blood Gas Specimen Type Arterial Blood Gas Sample Site Right radial Blood Gas Patient Temperature 37.0 Arterial Blood Date Drawn [id number] Arterial Blood pH 7.489 (7.350-7.450) Arterial Blood Partial Pressure CO2 36.1 mmHg (35.0-48.0) Arterial Blood Partial Pressure O2 66.1 mmHg (83.0-108.0) Arterial Blood HCO3 26.8 mmol/L (21.0-28.0) Arterial Blood Oxygen Saturation 94.3 % (94.0-98.0) Arterial Blood Base Excess 3.7 mmol/L (-2.0-3.0) Arterial Blood Oxyhemoglobin 92.8 % (94.0-98.0) Arterial Blood Carboxyhemoglobin 1.0 % (0.5-1.5) Arterial Blood Methemoglobin 0.6 % (0.0-1.5) Derrek Test Yes Blood Gas Total Hemoglobin 14.90 g/dL (13.5-17.5) Blood Gas Modality Room air FiO2 % 21.0 Test 05/30/24 07:49 05/30/24 02:44 05/30/24 02:38 05/30/24 01:57 Influenza Type A Antigen Negative (Negative) Influenza Type B Antigen Negative (Negative) SARS-CoV-2 Antigen (Rapid) Negative (NEGATIVE) Troponin I High Sensitivity 53 ng/L (</=54) Urine Color Yellow (Yellow) Urine Clarity Clear (Clear) Urine pH 5.5 (5.0-9.0) Urine Specific [place] 1.031 (1.001-1.035) Urine Protein Trace (Negative) Urine Ketones Negative (Negative) Urine Blood Negative /uL (Negative) Urine Nitrite Negative (Negative) Urine Bilirubin Negative (Negative) Urine Urobilinogen Normal mg/dL (Negative) Urine Leukocyte Esterase Negative /uL (Negative) Urine RBC None seen /hpf (0 - 3) Urine Microscopic WBC /HPF (0-3) Urine Squamous Epithelial Cells None seen /hpf (<5) Urine Bacteria None seen /hpf (None Seen) Urine Hyaline Casts Few /lpf (0 - 2) Urine Mucus Few (None Seen) Urine Glucose Normal mg/dL (Normal) Urine Opiates Screen Pos (NEGATIVE) Urine Fentanyl Screen Neg (NEGATIVE) Urine Barbiturates Screen Neg (NEGATIVE) Urine Phencyclidine Screen Neg (NEGATIVE) Urine Amphetamines Screen Neg (NEGATIVE) Urine Benzodiazepines Screen Neg (NEGATIVE) Urine Cocaine Screen Pos (NEGATIVE) Urine Cannabinoids Screen Neg (NEGATIVE) Erythrocyte Sedimentation Rate 7 mm/hr (0-20) C-Reactive Protein High Sensitivity 1.20 mg/dL (<1.0) Test 05/30/24 01:55 05/29/24 23:40 D-Dimer, Quantitative 0.33 mg/L FEU (0.0-0.49) Prothrombin Time 10.0 sec (9.3-11.8) Prothrombin Time INR 0.94 (0.9-1.15) Activated Partial Thromboplast Time 23.4 SEC (24.5-34.5) Hemoglobin A1c 6.7 % A1C (<5.7) Direct Bilirubin 0.2 mg/dL (<0.3) B-Type Natriuretic Peptide 8.47 pg/mL (0-100) Triglycerides Level 249 mg/dL (< 150) Cholesterol Level 132 mg/dL (< 200) LDL Cholesterol 72 mg/dL (< 100) HDL Cholesterol 42 mg/dL (40-59) Thyroid Stimulating Hormone (TSH) 2.37 uIU/mL (0.55-4.78) Plasma/Serum Blood Alcohol < 3.0 mg/dL (<10) Other Laboratory Tests 05/31/24 05:20 Brief Hx & Hospital Course: Mr. Larsen is a 43-year-old male with PMH of spinal fusion surgery 2009, chronic opioid use, rheumatoid arthritis, gout, solitary pulmonary nodule and hyperlipidemia who presented to the ER with a chief complaint of chest pain and shortness of breaths for the past 2 days. He reports using cocaine, last usage was 1 week back. He takes [place] 10/325 mg 4-5 times a day. Patient reports shortness of breaths along with productive greenish cough, orthopnea, paroxysmal nocturnal dyspnea. He sleeps in a recliner per the . also reports snoring. Associated symptoms include generalized fatigue, body ache, tiredness. Patient also reports chest pain, left-sided, sharp in nature increased by deep breaths, no radiation but he has been experiencing diaphoresis. PMH/PSH : See above.. Home medications: Prednisolone 20 mg b.i.d., allopurinol, colchicine 0.6 mg Social history: Lives family, smokes a pack a day for more than 20 years, denies drinking, has been using cocaine, last usage was 1 week back. The patient was previously sober for at least 3 years. Patient seen and examined at the bedside. at the bedside. Telemetry reviewed, shows sinus tachycardia. COVID influenza negative. Started ceftriaxone and azithromycin for likely pneumonia. Nebulized treatment started. During the hospitalization, patient was diagnosed with pneumonia, mixed Gram- positive and negative and therefore started on IV saline, nebulized treatments and ceftriaxone and azithromycin which he received for 2 days. Patient had lactic acidosis which resolved with IV fluids. He had NSTEMI likely type 2, echocardiogram completed shows LVEF 70% by visual estimate. Mild LVH. No severe valvular abnormalities. Tele psych was consulted for cocaine use and opiate dependence, no suicidal or homicidal ideations and no medications were initiated med tele psych. He was counseled extensively regarding avoiding cocaine in his smoking cessation for more than 28 minutes, nicotine patch was started and prescribed on discharge. Continuous home medication prednisolone 20 mg b.i.d. and colchicine 0.6 mg daily along with allopurinol 100 mg. Diabetic education was provided and mild ISS was initiated during the hospital stay. 05/31/2024-patient is hemodynamically stable, clinically stable, saturating 94 on room air, therefore is being discharged home with the strong recommendations to follow up with primary care physician, discharge clinic, transport rn, sleep physician and business systems technician within the next 2 weeks. Patient is discharged on Levaquin tablet, nicotine patches, levalbuterol and ipratropium inhalers. Discharge diagnosis: Sepsis likely secondary to pneumonia, Gram-positive and negative Acute on chronic COPD exacerbation COPD with pneumonitis Lactic acidosis Chest pain, likely pneumonitis NSTEMI, likely type 2 Possible cocaine withdrawal Opioid dependence Rheumatoid arthritis Gouty arthritis Ruled out DVT Uncontrolled type 2 diabetes mellitus-hemoglobin A1c 6.7-newly diagnosed Operations or Procedures ORDERING PHYSICIAN: NAN THAKUR PROCEDURE(s): BLDVT - BiLat Lower DVT REASON: r/o dvt ORDER NUMBER(s): [id number], ACCESSION NUMBER(s): [id number] BILATERAL LOWER EXTREMITY VENOUS DOPPLER CLINICAL HISTORY: r/o dvt Technique: Duplex Doppler evaluation of the deep venous systems of both lower extremities from the common femoral veins to the popliteal veins including color Doppler and spectral/pulsed waveform analysis was performed. COMPARISON: None FINDINGS: The right and left common femoral, superficial femoral, popliteal, posterior tibial veins and trifurcations appear patent with normal augmentation, phasicity, compressibility and color-flow. IMPRESSION: 1. There is no sonographic evidence for DVT in the lower extremities. HS:Y ATED BY: GALO CADET MD DICTATED DATE/TIME: 05/30/24 1040 SIGNED BY: GALO CADET MD SIGNED DATE/TIME: 05/30/24 1040 CC: ORDERING PHYSICIAN: NAN THAKUR PROCEDURE(s): KUB - KUB ABDOMEN SINGLE VIEW REASON: ?sbo ORDER NUMBER(s): [id number], ACCESSION NUMBER(s): [id number] XY KUB ABDOMEN SINGLE VIEW HISTORY: sbo TECHNICAL DATA: 1 view of the abdomen. COMPARISON: None FINDINGS: Patchy gas is identified within nondistended small bowel. There are no dilated small bowel loops. There is no abdominal mass effect. The renal and liver shadows are not enlarged. Lumbar spine hardware is seen. IMPRESSION: Nondilated non obstructive bowel gas pattern. ATED BY: ANGEL ROSS MD DICTATED DATE/TIME: 05/30/24 1019 SIGNED BY: ANGEL ROSS MD SIGNED DATE/TIME: 05/30/24 1019 CC: Condition at Discharge: Stable Final Diagnosis/Problems List Sepsis likely secondary to pneumonia, Gram-positive and negative Acute on chronic COPD exacerbation COPD with pneumonitis Lactic acidosis Chest pain, likely pneumonitis NSTEMI, likely type 2 Possible cocaine withdrawal Opioid dependence Rheumatoid arthritis Gouty arthritis Ruled out DVT Uncontrolled type 2 diabetes mellitus-hemoglobin A1c 6.7-newly diagnosed Discharge Disposition: Home Discharge Instruct/Medications Diet: Regular, Consistent carbohydrate Activity: No Restrictions, As Tolerated Follow Up/Referral: Follow up primary care physician within 7 days Follow up with business systems technician as outpatient for spirometry Follow up with sleep study for outpatient sleep study possible sleep apnea Follow up with the transport rn as outpatient Follow up with discharge clinic within 7 days Medications: Per EMR Discharge Statement: "Patient was advised to return to the ER or call 911 if any headaches, dizziness, shortness of breath, chest pain, abdominal pain, bleeding, fevers, or worsening of medical condition. Patient was counseled about treatment plan, medications, possible side effects, patientverbalized understanding. All questions were answered to the best of my ability. This discharge took greater then 30 minutes in planning, reviewing documentation, counseling the patient, and discussing with other team members." ASSESSMENT ASSESSMENT Assessment Sepsis likely secondary to pneumonia, Gram-positive and negative Acute on chronic COPD exacerbation COPD with pneumonitis Lactic acidosis Chest pain, likely pneumonitis NSTEMI, likely type 2 Cocaine use dependence Opioid dependence Tobacco use dependence Rheumatoid arthritis Gouty arthritis NAN THAKUR RESIDENT May 31, 2024 15:43
== END 2024-05-31 17:20 | disposition home or self-care (01) | DRG 720 ==
LOC: ER 23:22 → OVERFLOW 05-30 01:35 → TELE-EAST 05-31 09:46
PROVIDERS: ADMIT Student in an Organized Health Care Education/Training Program; ATTEND Student in an Organized Health Care Education/Training Program
DX: A41.59 Other Gram-negative sepsis (principal); I21.A1 Myocardial infarction type 2; J15.69 Pneumonia due to other Gram-negative bacteria; J15.9 Unspecified bacterial pneumonia; E87.20 Acidosis, unspecified; J44.0 Chronic obstructive pulmonary disease with (acute) lower respiratory infection; Z20.822 Contact with and (suspected) exposure to COVID-19; J44.1 Chronic obstructive pulmonary disease with (acute) exacerbation; E11.9 Type 2 diabetes mellitus without complications; M10.9 Gout, unspecified; E78.5 Hyperlipidemia, unspecified; F32.A Depression, unspecified; F14.23 Cocaine dependence with withdrawal; F41.9 Anxiety disorder, unspecified; G89.29 Other chronic pain; J98.4 Other disorders of lung; Z79.899 Other long term (current) drug therapy
CPT/HCPCS: 36415; 36600; 74018; 80048; 80053; 80061; 80076; 80307; 80320; 81001; 82805; 82962; 83036; 83605; 83735; 83880; 84443; 84484; 85025; 85379; 85610; 85652; 85730; 86141; 87040; 87426; 87804; 93005; 93306; 93970; 94640; G0378; J1815; J2405; J2470

== ENCOUNTER → 2024-06-30 | Outpatient (CLI) | payer MEDICAID ==
[~2024-06-30] MED LIST: ACET-1882 PO; ALBUAER3 IN; ALL100T PO; COLC1CAP PO; GABA-1250 PO; IPRIH INH; LEVO750T40 PO; NIC21P TOP; PRED20TA2 PO
[2024-06-30 10:39] LABS: Creatinine, Urine 223.68 mg/dL (30.0-125.0)
[2024-06-30 10:46] LABS: Urine Bacteria FEW /hpf (None Seen); Urine Blood Negative /uL (Negative); Urine Clarity Clear (Clear); Urine Color Yellow (Yellow); Urine Mucus FEW (None Seen); Urine Protein, UAD TRACE (Negative); Urine Specific Gravity 1.023 (1.001-1.035); Urine Squamous Epithelial Cell FEW /hpf (<5); Urine Urobilinogen Normal (Negative); Urine WBC 1 /HPF (0-3); Urine pH 5.5 (5.0-9.0)
[2024-06-30 10:47] LABS: Amphetamine Screen, Urine Neg (NEGATIVE); Barbiturate Scree,Urine Neg (NEGATIVE); Benzodiazephine Screen, Urine Neg (NEGATIVE); Cocaine Screen, Urine Neg (NEGATIVE); Opiate Scree,Urine Pos (NEGATIVE); Phencyclidine Screen, Urine Neg (NEGATIVE)
[2024-06-30 10:48] LABS: Cannabinoid Screen, Urine Neg (NEGATIVE)
[2024-06-30 11:34] LABS: Uric Acid 5.2 mg/dL (3.7-9.2)
[2024-07-01 08:07] LABS: Rheumatoid Arthritis Factor 20.9 IU/mL (<14.0)
== END | disposition home or self-care (01) ==
LOC: LAB 09:56
PROVIDERS: ATTEND Internal Medicine
DX: M05.00 Felty's syndrome, unspecified site (principal)
CPT/HCPCS: 36415; 80061; 80307; 81001; 82043; 82570; 84550; 86200; 86431

== ENCOUNTER 2024-07-22 22:35 | Emergency (ER) | payer MEDICAID ==
[~2024-07-22] VITALS: Ht 180.3 cm; Wt 109.1 kg
--- NOTE | 2024-07-22 22:40 | ECG ---
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
--- NOTE | 2024-07-22 23:07 | ED.PDOC ---
HPI Comments 43-year-old male came to ER for chest pains. Patient was discharged your last May 31, 2024, and was diagnosed with Sepsis likely secondary to pneumonia, Gram-positive and negative, 2. Acute on chronic COPD exacerbation, 3. COPD with pneumonitis, 4. Lactic acidosis, 5. Chest pain, likely pneumonitis, 6. NSTEMI, likely type 2, 7. Possible cocaine withdrawal, 8. Opioid dependence, 9. Rheumatoid arthritis, 10. Gouty arthritis, 11. Ruled out DVT, 12. Uncontrolled type 2 diabetes mellitus. States he has been experiencing intermittent episodes of left-sided chest pains, pressure, nonradiating the entire day, associated with generalized body malaise and palpitations. Patient denies using any pro hibited drugs recently. Patient was tachycardic on scene 129 beats per minute Chief Complaint: Palpitations Time Seen by MD: 23:06 Reviewed Notes: Nurses Notes Allergies: Coded Allergies: NO KNOWN ALLERGIES (Unverified , 05/29/24) Home Meds Active Scripts Metformin Hydrochloride (Metformin Hcl) 1,000 Mg Tab, 1 TAB PO BID for 90 Days, #180 TAB 5 Refills Prov:JOYCE NIXON MD 07/23/24 Acetaminophen (Acetaminophen) 325 Mg Tab, 650 MG PO BID PRN for 30 Days, #120 TAB 0 Refills Prov:NAN THAKUR 05/31/24 Nicotine (Nicoderm 21MG/24HR) 1 Patch Ph, 1 PATCH TOP DAILY for 30 Days, #28 PATCH 0 Refills Prov:NAN THAKUR 05/31/24 Ipratropium [place] Hfa (Atrovent Hfa) 17 Mcg Aer, 2 PUFF INH QID for 30 Days, #12.9 GRAMS 0 Refills Prov:NAN THAKUR 05/31/24 Albuterol Sulfate (VENTOLIN MDI) 90 Mcg Ih, 90 MCG IN DAILY PRN for 30 Days, #1 INH 0 Refills Prov:NAN THAKUR 05/31/24 Levofloxacin Hemihydrate (LEVOFLOXACIN) 750 Mg Tab, 1 TAB PO DAILY, #7 TAB Prov:DAYANA ROMAN MD 05/31/24 Reported Medications Gabapentin (Gabapentin) 300 Mg Cap, 1 CAP PO BID, #90 CAP 5 Refills 05/31/24 Allopurinol (ZYLOPRIM TABLET) 100 Mg Tb, 1 TAB PO TID, #30 TAB 5 Refills 05/31/24 Colchicine (Colchicine) 0.6 Mg Cap, 0.6 MG PO DAILY, CAP 05/31/24 Prednisone (Prednisone) 20 Mg Tab, 20 MG PO BID, MG 05/31/24 Information Source: Patient Mode of Arrival: Ambulatory Severity: Moderate Timing: Hours Duration: Intermittent Prehospital treatment: None Location: Chest (L) Radiation: No Radiation Quality: Pressure Onset: With Light Exertion Cardiac Risk Factors: HTN, Diabetes PE Risk Factors: None History of: Similar pain in past, [place] Associated Signs and Symptoms: Palpitations Past Medical History PAST MEDICAL HISTORY: COPD, DM, HTN, [place], Denies Surgical History: Denies all surgeries Social History Smoker: Non-Smoker Alcohol: Denies ETOH Use Drugs: Cocaine Lives In: Home Constitutional: reports: malaise; denies: chills, diaphoresis, fatigue, fever, sweats, weakness, others EENTM: denies: blurred vision, double vision, ear bleeding, ear discharge, ear drainage, ear pain, ear ringing, eye pain, eye redness, hearing loss, mouth pain, mouth swelling, nasal discharge, nose bleeding, nose congestion, nose pain, photophobia, tearing, throat pain, throat swelling, voice changes, others Respiratory: denies: cough, hemoptysis, orthopnea, SOB at rest, shortness of breath, SOB with excertion, stridor, wheezing, others Cardiovascular: reports: chest pain, palpitations; denies: dizzy spells, diaphoresis, Dyspnea on exertion, edema, irregular heart beat, left arm pain, lightheadedness, PND, syncope, others Gastrointestinal: denies: abdomen distended, abdominal pain, blood streaked bowels, constipated, diarrhea, dysphagia, difficulty swallowing, hematemesis, melena, nausea, poor appetite, poor fluid intake, rectal bleeding, rectal pain, vomiting, others Genitourinary: denies: burning, dysuria, flank pain, frequency, hematuria, incontinence, penile discharge, penile sore, pain, testicle pain, testicle swelling, urgency, others Neurological: denies: dizziness, fainting, headache, left sided numbness, left sided weakness, numbness, paresthesia, pre-existing deficit, right sided numbness, right sided weakness, seizure, speech problems, tingling, tremors, weakness, others Musculoskeletal: denies: back pain, gout, joint pain, joint swelling, muscle pain, muscle stiffness, neck pain, others Integumetry: denies: bruises, change in color, change in hair/nails, dryness, laceration, lesions, lumps, rash, wounds, others Allergic/Immunocompromised: denies: Difficulty Healing, Frequent Infections, Hives, Itching, others Hematologic/Lymphatic: denies: anemia, blood clots, easy bleeding, easy bruising, swollen glands, others Endocrine: denies: excessive hunger, excessive sweating, excessive thirst, excessive urination, flushing, intolerance to cold, intolerance to heat, unexplained weight gain, unexplained weight loss, others Psychiatric: denies: anxiety, bipolar disorder, depression, hopeless, panic disorder, schizophrenia, sleepless, suicidal, others Physical Exam General Appearance: No Apparent Distress, Normal HEENT: Normal ENT Inspection, Pharynx Normal, TMs Normal Neck: Full Range of Motion, Non-Tender, Normal, Normal Inspection Respiratory: Chest Non-Tender, Lungs Clear, No Accessory Muscle Use, No Respiratory Distress, Normal Breath Sounds Cardiovascular: No Edema, No JVD, No Murmur, No Gallop, Normal Peripheral Pulses, Regular Rate/Rhythm Breast Exam: Deferred Gastrointestinal: No Organomegaly, Non Tender, No Pulsatile Mass, Normal Bowel Sounds, Soft Genitalia: Deferred Pelvic: Deferred Rectal: Deferred Extremities: No calf tenderness, Normal capillary refill, Normal inspection, Normal range of motion, Non-tender, No pedal edema Musculoskeletal : Apperance: Normal Neurologic: Alert, ip counsel II-XII nml as Tested, No Motor Deficits, Normal Affect, Normal Mood, No Sensory Deficits Cerebellar Function: Normal Reflexes: Normal Skin: Dry, Normal Color, Warm Lymphatic: No Adenopathy EKG EKG : Pulse Rate (adult): 129 Cardiac Rhythm: ST Hypertrophy: LAE, LVH Was a procedure done? Was a procedure done?: No CP Differential Dx Differential Diagnosis: Angina, Anxiety / Panic Attack, Electrolyte Disorder Differential Diagnosis: Angina, Chest Wall Pain, Costochondritis, Esophageal reflux/spasm, Gastritis, Myocardial Infarction X-Ray, Labs, Meds, VS Vital Signs Date Time Temp Pulse Resp B/P (MAP) Pulse Ox O2 Delivery O2 Flow Rate FiO2 07/23/24 02:23 99 20 116/75 07/23/24 02:00 98.6 99 20 116/75 (89) 96 98.6 07/23/24 01:53 98 20 124/94 07/23/24 00:00 99.0 116 20 112/79 (90) 96 99.0 07/22/24 23:34 115 07/22/24 23:07 129 07/22/24 23:00 Nasal Cannula* 2 28 07/22/24 23:00 99.6 118 20 115/81 (92) 96 99.6 07/22/24 22:57 99.6 128 20 119/93 (102) 96 99.6 07/22/24 22:39 129 Lab Test 07/23/24 01:22 07/22/24 23:59 07/22/24 22:46 Range/Units Troponin I High Sensitivity 20 20 20 </=54 ng/L D-Dimer, Quantitative 1.40 H 0.0-0.49 mg/L FEU White Blood Count 7.9 4.4-10.8 10^3/uL Red Blood Count 5.40 4.5-5.90 10^6/uL Hemoglobin 15.2 13.5-17.5 g/dL Hematocrit 45.0 41.0-53.0 % Mean Corpuscular Volume 83.4 80.0-100.0 fL Mean Corpuscular Hemoglobin 28.2 28.0-32.0 pg Mean Corpuscular Hemoglobin Concent 33.8 32.0-36.0 g/dL Red Cell Distribution Width 15.8 H 11.8-14.3 % Platelet Count 225 140-450 10^3/uL Mean Platelet Volume 7.9 6.9-10.8 fL Neutrophils (%) (Auto) 78.1 37.0-80.0 % Lymphocytes (%) (Auto) 10.6 10.0-50.0 % Monocytes (%) (Auto) 8.3 0.0-12.0 % Eosinophils (%) (Auto) 1.6 0.0-7.0 % Basophils (%) (Auto) 1.4 0.0-2.0 % Neutrophils # (Auto) 6.1 1.6-8.6 10 ^3/uL Lymphocytes # (Auto) 0.8 0.4-5.4 10 ^3/uL Monocytes # (Auto) 0.7 0-1.3 10 ^3/uL Eosinophils # (Auto) 0.1 0-0.8 10 ^3/uL Basophils # (Auto) 0.1 0-0.2 10 ^3/uL Nucleated Red Blood Cells 0.1 % Prothrombin Time 10.5 9.3-11.8 sec Prothrombin Time INR 0.99 0.9-1.15 Activated Partial Thromboplast Time 23.9 L 24.5-34.5 SEC Sodium Level 134 L 136-145 mmol/L Potassium Level 3.4 L 3.5-5.1 mmol/L Chloride Level 99 98-107 mmol/L Carbon Dioxide Level 23 20-31 mmol/L Anion Gap 12 5-15 Blood Urea Nitrogen 9 9-23 mg/dL Creatinine 1.00 0.700-1.30 mg/dL Glomerular Filtration Rate Calc 95 >90 mL/min BUN/Creatinine Ratio 9.0 L 10.0-20.0 Serum Glucose 224 H 74-106 mg/dL Calcium Level 9.3 8.7-10.4 mg/dL Total Bilirubin 0.4 0.2-1.0 mg/dL Aspartate Amino Transferase (AST) 19 13-40 U/L Alanine Aminotransferase (ALT) 35 7-40 U/L Alkaline Phosphatase 99 46-116 U/L Total Protein 6.5 5.7-8.2 g/dL Albumin 4.1 3.2-4.8 g/dL Current Medications Medications (Trade) Dose Ordered Sig/Norberto Route Start Time Stop Time Status Last Admin Sodium Chloride 1,000 ml @ 1,000 mls/hr Q1H ONCE IV 07/23/24 01:30 07/23/24 02:29 DC 07/23/24 01:43 Morphine Sulfate 4 mg ONCE ONCE IV 07/23/24 02:00 07/23/24 02:01 DC 07/23/24 01:53 Ondansetron HCl (Zofran) 4 mg ONCE ONCE IV 07/23/24 02:00 07/23/24 02:01 DC 07/23/24 01:52 CHEST RADIOGRAPH Indication: chest pain Technique: Single frontal view of the chest was obtained Comparison: XY CHEST XRAY 1 VIEW on DOS: 05/30/24 FINDINGS: Lines and Tubes: None Lungs: No focal consolidation. Pleura: No effusion. No pneumothorax. Cardiomediastinal contours: Unremarkable Bones: No acute osseous abnormality. IMPRESSION: 1. No acute cardiopulmonary disease. Time of 1ST Reevaluation: 22:51 Reevaluation 1ST: Unchanged Patient Education/Counseling: Diagnosis, Treatment Family Education/Counseling: No Family Present Departure 1 Departure Time of Disposition: 23:00 Impression: Primary Impression: Atypical chest pain Additional Impression: Hyperglycemia Disposition: HOME / SELF CARE / HOMELESS Condition: Stable e-Prescriptions Metformin Hydrochloride (Metformin Hcl) 1,000 Mg Tab 1 TAB PO BID for 90 Days, #180 TAB 5 Refills Prov: JOYCE NIXON MD 07/23/24 Discharged With: Self Critical Care Note Critical Care Time?: Yes (45 min-critical care time only) Critical care comment: Active chest pains Stability Stability form required: No Heart Score Heart Score: Heart Score Response (Comments) Value History Moderate Suspicious 1 EKG Repolarization Disturb 1 Age 45-64 1 Risk Factors >3 or Hx ASHD 2 Troponin Normal limit 0 Total 5 I personally scribed for JOYCE NIXON MD ([email or web address]) on 07/22/24 at 23:07. Electronically submitted by Brown Willingham ([email or web address]). I personally scribed for JOYCE NIXON MD ([email or web address]) on 07/23/24 at 00:53. Electronically submitted by Brown Willingham ([email or web address]). JOYCE NIXON MD Jul 22, 2024 23:07
[2024-07-22 23:35] LABS: Basophils # (auto) 0.1 10 ^3/uL (0-0.2); Basophils % (auto) 1.4 % (0.0-2.0); Eosinophils # (auto) 0.1 10 ^3/uL (0-0.8); Eosinophils % (auto) 1.6 % (0.0-7.0); Hemoglobin 15.2 g/dL (13.5-17.5); Lymphocytes # (auto) 0.8 10 ^3/uL (0.4-5.4); Lymphocytes % (auto) 10.6 % (10.0-50.0); Mean Corpuscular Hemoglobin 28.2 pg (28.0-32.0); Mean Corpuscular Hgb Conc. 33.8 g/dL (32.0-36.0); Mean Corpuscular Volume 83.4 fL (80.0-100.0); Monocytes # (auto) 0.7 10 ^3/uL (0-1.3); Monocytes % (auto) 8.3 % (0.0-12.0); Neutrophils # (auto) 6.1 10 ^3/uL (1.6-8.6); Neutrophils % (auto) 78.1 % (37.0-80.0); Nucleated Red Blood Cells % 0.1 %; Platelet Count (auto) 225 10^3/uL (140-450); Red Cell Distribution Width 15.8 % (11.8-14.3); White Blood Cell 7.9 10^3/uL (4.4-10.8)
--- NOTE | 2024-07-22 23:36 | ECG ---
[facility] Test Date: 2024-07-22 Test Time: 23:34:44 Pat Name: RADHA HODGE Department: ED Room: Gender: M Consumer Relations Complaint Clerk: JULIANNA : 1980 Requested By: JOYCE NIXON Order Number: [id number] Reading MD: Naldo Holland Measurements Intervals [place] Rate: 115 P: 31 DE: 136 QRS: -49 QRSD: 86 T: 48 QT: 318 QTc: 440 Interpretive Statements Sinus tachycardia Atrial premature complex Biatrial enlargement Left anterior fascicular block Abnormal R-wave progression, late transition Probable left ventricular hypertrophy ST elevation, consider anterior injury Electronically Signed On 07-24-2024 20:34:25 PDT by Naldo Holland Please click the below link to view image of tracing.
[2024-07-22 23:49] LABS: INR 0.99 (0.9-1.15); Partial Thromboplastin Time 23.9 SEC (24.5-34.5); Prothrombin Time 10.5 sec (9.3-11.8)
[2024-07-22 23:53] LABS: Alanine Aminotransferase 35 U/L (7-40); Albumin 4.1 g/dL (3.2-4.8); Alkaline Phosphatase 99 U/L (46-116); Anion Gap 12 (5-15); Aspartate Aminotransferase 19 U/L (13-40); Bilirubin, Total 0.4 mg/dL (0.2-1.0); Calcium 9.3 mg/dL (8.7-10.4); Carbon Dioxide 23 mmol/L (20-31); Chloride 99 mmol/L (98-107); Total Protein 6.5 g/dL (5.7-8.2)
[2024-07-22 23:55] LABS: Blood Urea Nitrogen 9 mg/dL (9-23); Glucose 224 mg/dL (74-106); Potassium 3.4 mmol/L (3.5-5.1); Sodium 134 mmol/L (136-145)
[2024-07-23] MEDS: IOHEXOL 350 MG/ML 100ML IJ ONE (01:43)
[2024-07-23] MEDS: SODIUM CHLORIDE 0.9% 1,000 ML IV ONE (01:43)
[2024-07-23] MEDS: ONDANSETRON HCL 4 MG/2 ML VIAL IV ONE (01:52)
[2024-07-23] MEDS: MORPHINE SULFATE 4 MG/ML SYR/VIAL IV ONE (01:53)
[2024-07-23 02:00] VITALS: TEMP 98.6; O2SAT 96
--- NOTE | 2024-07-23 02:10 | DVH ---
CTA Chest with intravenous contrast INDICATION: chest pain, rapid HR COMPARISON: None TECHNIQUE: Multidetector spiral CTA of the chest was performed of the chest with intravenous contrast . PULMONARY ANGIOGRAPHY PROTOCOL was utilized using a bolus-tracking technique centered on the main p ulmonary artery. Axial, coronal and sagittal multiplanar and MIP reformats were performed. Radiation Dose : 1. Chest: CTDI volume is 62.17 mGy. Dose-length product is 1982.05 mGy*cm The dose indicators for CT are the volume Computed Tomography (CT) Dose Index (CTDIvol) and the Dose Length Product (DLP), and are measured in units of mGy and mGy-cm, respectively. These indicators are not patient dose, but values generated from the CT scanner acquisition factors. The report includes radiation exposure data for exposures received during this examination. Findings: Pulmonary artery: No pulmonary embolism The main pulmonary artery measures 2.9 cm in the ascending aorta measures 3.1 cm. Lower neck: Normal thyroid. Lungs: No focal consolidation, pleural effusion or pneumothorax. Heart/Vascular Structures: Normal heart size. No pericardial effusion. Lymph Nodes: No adenopathy Pleura: No pleural effusion or significant pneumothorax. Musculoskeletal: No acute osseous abnormality. Soft tissues: Normal. Upper abdomen: The liver appears enlarged. Limited portions of the upper abdomen are otherwise unrema rkable. IMPRESSION: 1. No pulmonary embolism. 2. No acute thoracic finding. 3. Hepatomegaly.
[2024-07-23 02:23] VITALS: BP 116/75; PULSE 99; RESP 20
[2024-07-23] MEDS ORDERED: METF-372 PO (02:38)
== END 2024-07-23 02:54 | disposition home or self-care (01) ==
LOC: ER 22:35
DX: R07.89 Other chest pain (principal); E11.65 Type 2 diabetes mellitus with hyperglycemia; J44.1 Chronic obstructive pulmonary disease with (acute) exacerbation; I10 Essential (primary) hypertension; I25.2 Old myocardial infarction; Z79.899 Other long term (current) drug therapy; Z79.52 Long term (current) use of systemic steroids; Z79.84 Long term (current) use of oral hypoglycemic drugs
CPT/HCPCS: 36415; 71045; 71275; 80053; 84484; 85025; 85379; 85610; 85730; 93005; 96361; 96374; 96375; 99285; J2270; J2405; J7030; Q9967

== ENCOUNTER → 2024-08-18 | Outpatient (CLI) | payer MEDICAID ==
[~2024-08-18] VITALS: Ht 180.3 cm; Wt 108.9 kg
[~2024-08-18] MED LIST changes: +METF-372 PO
[2024-08-18] MEDS: REGADENOSON 0.4 MG/5 ML SYRG IV ONE ×2 (10:03)
--- NOTE | 2024-08-18 14:44 | DVHSR ---
APPROVED REPORT Exam: Nuclear Stress Test BMI: 0 Stress Test Details HR Max Heart Rate (APMHR): 175.463769 bpm Target HR (85% APMHR): 148.350944 bpm BP ECG Stress ECG Conclusion lvef 54% normal perfusion scan no stress induced ischemia noted NM EXAM: Myocardial Perfusion REST/STRESS Imaging Protocol: Rest Tc-99m/Stress Tc-99m 1 day Resting Data Rest SPECT myocardial perfusion imaging was performed in supine position 60 minutes following the int ravenous injection of 11.5 mCi of Tc-99m Sestamibi. Time of rest injection: 09:00 Date: 08/18/2024 Time of rest imagin:00 Date: 08/18/2024 Administration Route: IV Administration Site: Left Arm Pharmacologic Stress Pharmacologic stress test was performed by injecting Regadenoson 0.4 mg IV push followed by the intra venous injection of 33.0 mCi of Tc-99m Sestamibi. Time of stress injection: 10:05 Date: 08/18/2024 Time of stress imagin:05 Date: 08/18/2024 Administration Route: IV Administration Site: Left Arm Gated Stress SPECT was performed 60 minutes after stress injection. The images were gated to evaluate regional wall motion and calculate left ventricular ejection fracti on. Stress only was performed in the Supine position. Nuclear Conclusion Nuclear Findings: negative for ischemia lvef 54% normal perfusion scan no stress induced ischemia noted
== END | disposition home or self-care (01) ==
LOC: XYW 08:19
PROVIDERS: ATTEND Internal Medicine
DX: R07.9 Chest pain, unspecified (principal)
CPT/HCPCS: 78452; 93017; A9500; J2785

== ENCOUNTER 2024-08-19 00:07 | Emergency (ER) | payer MEDICAID ==
[~2024-08-19] VITALS: Ht 180.3 cm; Wt 109.0 kg
--- NOTE | 2024-08-19 00:28 | ED.PDOC ---
HPI Comments 43-year-old male who came to ER for chest pains. Patient does have history of diabetes, COPD, rheumatoid arthritis, gout, mi, substance abuse. At about 10:00 p.m. last night, he started experiencing left-sided chest pains, pressure, constant, nonradiating, associated with palpitations, nausea, diaphoresis, and shortness a breath. Patient took his blood sugar, in noted it to be high at 480. Chief Complaint: Chest Pain Time Seen by MD: 00:27 Reviewed Notes: Nurses Notes Allergies: Coded Allergies: NO KNOWN ALLERGIES (Unverified , 05/29/24) Home Meds Active Scripts Metformin Hydrochloride (Metformin Hcl) 1,000 Mg Tab, 1 TAB PO BID for 90 Days, #180 TAB 5 Refills Prov:JOYCE NIXON MD 07/23/24 Acetaminophen (Acetaminophen) 325 Mg Tab, 650 MG PO BID PRN for 30 Days, #120 TAB 0 Refills Prov:NAN THAKUR 05/31/24 Nicotine (Nicoderm 21MG/24HR) 1 Patch Ph, 1 PATCH TOP DAILY for 30 Days, #28 PATCH 0 Refills Prov:NAN THAKUR 05/31/24 Ipratropium [place] Hfa (Atrovent Hfa) 17 Mcg Aer, 2 PUFF INH QID for 30 Days, #12.9 GRAMS 0 Refills Prov:NAN THAKUR 05/31/24 Albuterol Sulfate (VENTOLIN MDI) 90 Mcg Ih, 90 MCG IN DAILY PRN for 30 Days, #1 INH 0 Refills Prov:NAN THAKUR 05/31/24 Levofloxacin Hemihydrate (LEVOFLOXACIN) 750 Mg Tab, 1 TAB PO DAILY, #7 TAB Prov:DAYANA ROMAN MD 05/31/24 Reported Medications Gabapentin (Gabapentin) 300 Mg Cap, 1 CAP PO BID, #90 CAP 5 Refills 05/31/24 Allopurinol (ZYLOPRIM TABLET) 100 Mg Tb, 1 TAB PO TID, #30 TAB 5 Refills 05/31/24 Colchicine (Colchicine) 0.6 Mg Cap, 0.6 MG PO DAILY, CAP 05/31/24 Prednisone (Prednisone) 20 Mg Tab, 20 MG PO BID, MG 05/31/24 Information Source: Patient Mode of Arrival: Ambulatory Severity: Moderate Timing: Hours Duration: Since onset Location: Chest (L) Radiation: No Radiation Quality: Pressure Onset: With Light Exertion Cardiac Risk Factors: Diabetes, Drugs History of: Similar pain in past, CT Associated Signs and Symptoms: SOB, Palpitations, Diaphoresis, N/V Past Medical History PAST MEDICAL HISTORY: Arthritis, COPD, DM, Gout, HTN, CT Surgical History: Denies all surgeries Family History Family History: Reviewed,noncontributory to illness Social History Smoker: Non-Smoker Alcohol: Denies ETOH Use Drugs: Cocaine Lives In: Home Constitutional: denies: chills, diaphoresis, fatigue, fever, malaise, sweats, weakness, others EENTM: denies: blurred vision, double vision, ear bleeding, ear discharge, ear drainage, ear pain, ear ringing, eye pain, eye redness, hearing loss, mouth pain, mouth swelling, nasal discharge, nose bleeding, nose congestion, nose pain, photophobia, tearing, throat pain, throat swelling, voice changes, others Respiratory: reports: shortness of breath; denies: cough, hemoptysis, orthopnea, SOB at rest, SOB with excertion, stridor, wheezing, others Cardiovascular: reports: chest pain, dizzy spells, diaphoresis; denies: Dyspnea on exertion, edema, irregular heart beat, left arm pain, lightheadedness, palpitations, PND, syncope, others Gastrointestinal: reports: nausea; denies: abdomen distended, abdominal pain, blood streaked bowels, constipated, diarrhea, dysphagia, difficulty swallowing, hematemesis, melena, poor appetite, poor fluid intake, rectal bleeding, rectal pain, vomiting, others Genitourinary: denies: burning, dysuria, flank pain, frequency, hematuria, incontinence, penile discharge, penile sore, pain, testicle pain, testicle swelling, urgency, others Neurological: denies: dizziness, fainting, headache, left sided numbness, left sided weakness, numbness, paresthesia, pre-existing deficit, right sided numbness, right sided weakness, seizure, speech problems, tingling, tremors, weakness, others Musculoskeletal: denies: back pain, gout, joint pain, joint swelling, muscle pain, muscle stiffness, neck pain, others Integumetry: denies: bruises, change in color, change in hair/nails, dryness, laceration, lesions, lumps, rash, wounds, others Allergic/Immunocompromised: denies: Difficulty Healing, Frequent Infections, Hives, Itching, others Hematologic/Lymphatic: denies: anemia, blood clots, easy bleeding, easy bruis ing, swollen glands, others Endocrine: denies: excessive hunger, excessive sweating, excessive thirst, exc essive urination, flushing, intolerance to cold, intolerance to heat, unexplained weight gain, unexplained weight loss, others Psychiatric: denies: anxiety, bipolar disorder, depression, hopeless, panic disorder, schizophrenia, sleepless, suicidal, others Physical Exam General Appearance: No Apparent Distress, Normal HEENT: Normal ENT Inspection, Pharynx Normal, TMs Normal Neck: Full Range of Motion, Non-Tender, Normal, Normal Inspection Respiratory: Chest Non-Tender, Lungs Clear, No Accessory Muscle Use, No Resp iratory Distress, Normal Breath Sounds Cardiovascular: No Edema, No JVD, No Murmur, No Gallop, Normal Peripheral Pulses, Regular Rate/Rhythm Breast Exam: Deferred Gastrointestinal: No Organomegaly, Non Tender, No Pulsatile Mass, Normal Bowel Sounds, Soft Genitalia: Deferred Pelvic: Deferred Rectal: Deferred Extremities: No calf tenderness, Normal capillary refill, Normal inspection, Normal range of motion, Non-tender, No pedal edema Musculoskeletal : Apperance: Normal Neurologic: Alert, rattling machine tender II-XII nml as Tested, No Motor Deficits, Normal Affect, Normal Mood, No Sensory Deficits Cerebellar Function: Normal Reflexes: Normal Skin: Dry, Normal Color, Warm Lymphatic: No Adenopathy EKG EKG : Pulse Rate (adult): 118 Cardiac Rhythm: ST Hypertrophy: LAE, LVH Was a procedure done? Was a procedure done?: No CP Differential Dx Differential Diagnosis: Angina, Anxiety / Panic Attack, Hyperventilation, Sinus Tachycardia Differential Diagnosis: Angina, Chest Wall Pain, Costochondritis, Esophageal reflux/spasm, Gastritis, Myocardial Infarction, Pneumonia X-Ray, Labs, Meds, VS Vital Signs Date Time Temp Pulse Resp B/P (MAP) Pulse Ox O2 Delivery O2 Flow Rate FiO2 08/19/24 00:34 97.6 109 22 118/81 (93) 93 97.6 08/19/24 00:28 118 Lab Test 08/19/24 00:50 08/19/24 00:24 08/19/24 00:13 Range/Units Blood Gas Specimen Type Venous Blood Gas Sample Site Vbg - n/a Blood Gas Patient Temperature 37.0 Arterial Blood Date Drawn [id number] Derrek Test N/a Venous Blood pH 7.453 H 7.320-7.430 Venous Blood pCO2 at Patient Temp 38.1 38.0-54.0 mmHg Venous Blood pO2 at Patient Temp 44.1 23.0-48.0 mmHg Venous Blood HCO3 26.1 22.0-29.0 mmol/L Venous Blood Base Excess 2.2 -2.0-3.0 mmol/L Blood Gas Modality Room air FiO2 % 21.0 POC Glucose 363 H 70-106 mg/dl White Blood Count 14.1 H 4.4-10.8 10^3/uL Red Blood Count 5.59 4.5-5.90 10^6/uL Hemoglobin 15.3 13.5-17.5 g/dL Hematocrit 45.8 41.0-53.0 % Mean Corpuscular Volume 82.0 80.0-100.0 fL Mean Corpuscular Hemoglobin 27.5 L 28.0-32.0 pg Mean Corpuscular Hemoglobin Concent 33.5 32.0-36.0 g/dL Red Cell Distribution Width 15.1 H 11.8-14.3 % Platelet Count 349 140-450 10^3/uL Mean Platelet Volume 7.8 6.9-10.8 fL Neutrophils (%) (Auto) 84.0 H 37.0-80.0 % Lymphocytes (%) (Auto) 12.9 10.0-50.0 % Monocytes (%) (Auto) 2.8 0.0-12.0 % Eosinophils (%) (Auto) 0.0 0.0-7.0 % Basophils (%) (Auto) 0.3 0.0-2.0 % Neutrophils # (Auto) 11.8 H 1.6-8.6 10 ^3/uL Lymphocytes # (Auto) 1.8 0.4-5.4 10 ^3/uL Monocytes # (Auto) 0.4 0-1.3 10 ^3/uL Eosinophils # (Auto) 0 0-0.8 10 ^3/uL Basophils # (Auto) 0 0-0.2 10 ^3/uL Nucleated Red Blood Cells 0.0 % Prothrombin Time 10.3 9.3-11.8 sec Prothrombin Time INR 0.97 0.9-1.15 Activated Partial Thromboplast Time 26.9 24.5-34.5 SEC Sodium Level 133 L 136-145 mmol/L Potassium Level 4.6 3.5-5.1 mmol/L Chloride Level 101 98-107 mmol/L Carbon Dioxide Level 24 20-31 mmol/L Anion Gap 8 5-15 Blood Urea Nitrogen 10 9-23 mg/dL Creatinine 0.99 0.700-1.30 mg/dL Glomerular Filtration Rate Calc 96 >90 mL/min BUN/Creatinine Ratio 10.1 10.0-20.0 Serum Glucose 374 H 74-106 mg/dL Calcium Level 9.8 8.7-10.4 mg/dL Total Bilirubin 0.6 0.2-1.0 mg/dL Aspartate Amino Transferase (AST) 18 13-40 U/L Alanine Aminotransferase (ALT) 33 7-40 U/L Alkaline Phosphatase 127 H 46-116 U/L Troponin I High Sensitivity 27 </=54 ng/L Total Protein 7.6 5.7-8.2 g/dL Albumin 4.8 3.2-4.8 g/dL CHEST RADIOGRAPH Indication: CHEST PAIN Technique: Single frontal view of the chest was obtained COMPARISON: XY CHEST PORTABLE on DOS: 07/22/24 FINDINGS: Lines and Tubes: None Lungs: Clear Pleura: No effusion. No pneumothorax. Cardiomediastinal contours: Unremarkable IMPRESSION: No acute disease. Time of 1ST Reevaluation: 00:21 Reevaluation 1ST: Unchanged Patient Education/Counseling: Diagnosis, Treatment Family Education/Counseling: No Family Present Departure 1 Departure Time of Disposition: 02:00 Impression: Primary Impression: Hyperglycemia Additional Impression: Atypical chest pain Disposition: 01 HOME / SELF CARE / HOMELESS Condition: Stable Discharged With: Self Critical Care Note Critical Care Time?: Yes (35 min-critical care time only) Critical care comment: Acute chest pains Stability Stability form required: No Heart Score Heart Score: Heart Score Response (Comments) Value History Moderate Suspicious 1 EKG Repolarization Disturb 1 Age 45-64 1 Risk Factors >3 or Hx ASHD 2 Troponin Normal limit 0 Total 5 I personally scribed for JOYCE NIXON MD ([email or web address]) on 08/19/24 at 00:28. Electronically submitted by Brown Willingham ([email or web address]). I personally scribed for JOYCE NIXON MD ([email or web address]) on 08/19/24 at 01:39. Electronically submitted by Brown Willingham ([email or web address]). JOYCE NIXON MD August 19, 2024 00:28
[2024-08-19] MEDS ORDERED: InsuLIN REG 1unit/0.01ml Soln (100units/ml) SC ONE ×2 (00:30→00:45)
[2024-08-19] MEDS ORDERED: SODIUM CHLORIDE 0.9% 1,000 ML IVB ONE (00:30)
[2024-08-19 00:34] VITALS: BP 118/81; PULSE 109; RESP 22; TEMP 97.6; O2SAT 93
[2024-08-19 00:46] LABS: Basophils # (auto) 0 10 ^3/uL (0-0.2); Basophils % (auto) 0.3 % (0.0-2.0); Eosinophils # (auto) 0 10 ^3/uL (0-0.8); Hematocrit 45.8 % (41.0-53.0); Hemoglobin 15.3 g/dL (13.5-17.5); Lymphocytes # (auto) 1.8 10 ^3/uL (0.4-5.4); Lymphocytes % (auto) 12.9 % (10.0-50.0); Mean Corpuscular Hemoglobin 27.5 pg (28.0-32.0); Mean Corpuscular Hgb Conc. 33.5 g/dL (32.0-36.0); Monocytes # (auto) 0.4 10 ^3/uL (0-1.3); Monocytes % (auto) 2.8 % (0.0-12.0); Neutrophils # (auto) 11.8 10 ^3/uL (1.6-8.6); Platelet Count (auto) 349 10^3/uL (140-450); Red Blood Cells 5.59 10^6/uL (4.5-5.90); Red Cell Distribution Width 15.1 % (11.8-14.3); White Blood Cell 14.1 10^3/uL (4.4-10.8)
[2024-08-19 01:03] LABS: INR 0.97 (0.9-1.15); Partial Thromboplastin Time 26.9 SEC (24.5-34.5); Prothrombin Time 10.3 sec (9.3-11.8)
[2024-08-19 01:10] LABS: Alanine Aminotransferase 33 U/L (7-40); Albumin 4.8 g/dL (3.2-4.8); Anion Gap 8 (5-15); Aspartate Aminotransferase 18 U/L (13-40); BUN/Creatinine Ratio 10.1 (10.0-20.0); Blood Urea Nitrogen 10 mg/dL (9-23); Calcium 9.8 mg/dL (8.7-10.4); Carbon Dioxide 24 mmol/L (20-31); Chloride 101 mmol/L (98-107); Potassium 4.6 mmol/L (3.5-5.1); Total Protein 7.6 g/dL (5.7-8.2)
[2024-08-19 01:11] LABS: Bilirubin, Total 0.6 mg/dL (0.2-1.0)
--- NOTE | 2024-08-19 01:12 | DVH ---
CHEST RADIOGRAPH Indication: CHEST PAIN Technique: Single frontal view of the chest was obtained COMPARISON: XY CHEST PORTABLE on DOS: 07/22/24 FINDINGS: Lines and Tubes: None Lungs: Clear Pleura: No effusion. No pneumothorax. Cardiomediastinal contours: Unremarkable IMPRESSION: No acute disease.
[2024-08-19 01:13] LABS: Alkaline Phosphatase 127 U/L (46-116); Glucose 374 mg/dL (74-106); Sodium 133 mmol/L (136-145)
--- NOTE | 2024-08-19 06:27 | ECG ---
[facility] Test Date: 2024-08-19 Test Time: 00:15:36 Pat Name: FAROOQ HODGE Department: ED Room: Gender: M Communications Instructor: Zoey : 1980 Requested By: JOYCE NIXON Order Number: [id number] Reading MD: Naldo Holland Measurements Intervals [place] Rate: 113 P: 22 NC: 137 QRS: -34 QRSD: 90 T: 49 QT: 342 QTc: 469 Interpretive Statements Sinus tachycardia LAE, consider biatrial enlargement Abnormal R-wave progression, late transition Left ventricular hypertrophy ST elev, probable normal early repol pattern Baseline wander in lead(s) V5 Electronically Signed On 08-22-2024 12:00:47 PDT by Naldo Holland Please click the below link to view image of tracing.
== END 2024-08-19 03:11 | disposition left against medical advice (07) ==
LOC: ER 00:07
DX: R07.89 Other chest pain (principal); E11.65 Type 2 diabetes mellitus with hyperglycemia; J44.9 Chronic obstructive pulmonary disease, unspecified; M10.9 Gout, unspecified; I10 Essential (primary) hypertension; I25.2 Old myocardial infarction; F14.10 Cocaine abuse, uncomplicated; Z79.52 Long term (current) use of systemic steroids; Z79.84 Long term (current) use of oral hypoglycemic drugs; Z79.899 Other long term (current) drug therapy
CPT/HCPCS: 36415; 36600; 71045; 80053; 82805; 82947; 82962; 84484; 85025; 85610; 85730; 93005

== ENCOUNTER 2024-08-24 16:48 | Inpatient (IN) | payer MEDICAID ==
[~2024-08-24] VITALS: Ht 180.3 cm; Wt 110.1 kg
[2024-08-24] MEDS: COLCHICINE 0.6 MG CAP PO ONE (17:15)
[2024-08-24] MEDS ORDERED: ACETAMINOPHEN 325 MG TAB PO PRN (17:15)
[2024-08-24] MEDS ORDERED: DEXTROSE (50%) 50ML SYRG IV PRN (17:15)
[2024-08-24] MEDS ORDERED: NITROGLYCERIN 0.4 MG SL TAB SL PRN (17:15)
[2024-08-24] MEDS ORDERED: MORPHINE SULFATE INJ 2 MG/ml SYRG IV PRN (17:15)
[2024-08-24] MEDS ORDERED: ONDANSETRON HCL 4 MG/2 ML VIAL IV PRN (17:15)
[2024-08-24] MEDS: SODIUM CHLORIDE 0.9% 1,000 ML IV SCH (17:15)
--- NOTE | 2024-08-24 17:23 | DVHHPRES ---
History of Present Illness Resident Creating Document: ASIYA PRUITT RESIDENT History of Present Illness david Patrick is a 42 years old male with a history of COPD, rheumatoid arthritis, gouty arthritis, HLD, type 2 DM uncontrolled admitted to the hospital with a chief complaints of severe redness, swelling of bilateral wrists. patient was being sent from the primary clinic for the treatment of possible flare-up of rheumatoid arthritis/gouty arthritis. 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 The patient's symptoms has been getting worsening for last 2 weeks which prompted him to visit hospital. Patient denies fever, nausea, vomiting, chest pain, abdominal pain, trauma, and other associated symptoms at this time. PMH: RA vs Gout, HLD, lung nodule PSH: Spinal fusion Family history: Heart disease, ESRD, diabetes in father Social history: Lives with family. Smokes less than one pack for 27 years and vapes. But denies alcohol and other drug abuse Allergies: No known allergies Home medications: Prednisolone 5 mg Review of Systems Review of Systems Patient seen and examined at the bedside. Patient is significant distress due to pain in both wrists and decreased range of motions. Allergies: Coded Allergies: NO KNOWN ALLERGIES (Unverified , 05/29/24) Medications Current Medications Medications Dose Ordered Sig/Norberto Route Start Time Stop Time Status Last Admin Dose Admin Sodium Chloride 1,000 ml @ 120 mls/hr Q8H20M IV 08/24/24 17:15 UNV Acetaminophen/ Hydrocodone Bitart 1 tab Q4HP PRN PO 08/24/24 17:15 UNV Ondansetron HCl 4 mg Q4HP PRN IV 08/24/24 17:15 UNV Enoxaparin Sodium 40 mg DAILY SC 08/25/24 10:00 UNV Acetaminophen 650 mg Q6HP PRN PO 08/24/24 17:15 UNV Morphine Sulfate 2 mg Q4HPRN PRN IV 08/24/24 17:15 UNV Nitroglycerin 0.4 mg Q5MINP PRN SL 08/24/24 17:15 UNV Morphine Sulfate 2 mg Q30M PRN IV 08/24/24 17:15 UNV Colchicine 0.6 mg Q12HR PO 08/25/24 09:00 UNV Methylprednisolone Sodium Succinate 60 mg BID IV 08/24/24 17:15 UNV Diagnostic Test (Pha) 1 strip ACHS 08/24/24 22:00 UNV Insulin Human Regular HS SC 08/24/24 22:00 UNV Insulin Human Regular AC SC 08/25/24 07:00 UNV Dextrose 50 ml UD PRN IV 08/24/24 17:15 UNV Exam Exam Pt is lying on bed General Appearance: Alert, Oriented X3, Cooperative,Acute distress due to pain HEENT: Atraumatic, Mucous membranes moist/pink Respiratory: Clear to auscultation, Normal air movement, No added sounds Cardiovascular: Regular rate, Normal S1, Normal S2, No murmurs Abdominal: Active bowel sounds, Soft, no distention, no tenderness Extremities: No edema, Normal pulses, bilateral breast tenderness, redness, warmth, swollen Skin: No Significant rash, except past surgical scars Neuro: Normal speech, sensorimotor deficits none Psych/Mental Status: Mental status NL, Mood NL Nurse was there as sharperone during examination Assessment/Plan Assessment/Plan # rheumatoid arthritis flare # gouty arthritis flare - ordered bilateral wrist x-ray, pending - ordered new lab including uric acid, ESR, CRP - started on colchicine 1.2 loading dose followed by 0.6 b.i.d. - started methylprednisolone 60 mg b.i.d. - pain management with morphine and [place] as needed # Uncontrolled type 2 DM with hyperglycemia, pending HbA1c- moderate insulin sliding scale and Accu-Cheks Protonix Lovenox Cardiac diet Goals of care discussed with the patient for more than 29 minutes: Full code status Case discussed with Dr. Hawley, patient and nurse Plan discussed with: Patient, Spouse My Orders Orders - ASIYA PRUITT RESIDENT Procedure Category Date Status Time Admit ADMIT 08/24/24 Transmitted 17:09 Allergies ROBERT 08/24/24 In Process 17:09 Code Status CODE 08/24/24 Transmitted 17:09 Sodium Chloride 0.9% PHA 08/24/24 Logged 17:15 Hydrocodone-Acet PHA 08/24/24 Logged 5/325mg Tab ([place] 17:15 Ondansetron Hcl PHA 08/24/24 Logged (Zofran) 17:15 Enoxaparin Sodium PHA 08/25/24 Logged (Lovenox) 10:00 Complete Blood Count LAB 08/25/24 Verified 04:00 Comprehensive LAB 08/25/24 Verified Metabolic Panel 04:00 Cardiac DIET 08/24/24 Transmitted Diet-2gna,Lofat,Lochol Dinner Condition: Stable [facility] 08/24/24 In Process 17:09 Acetaminophen Tablet PHA 08/24/24 Logged (Tylenol Tablet) 17:15 Morphine Sulfate PHA 08/24/24 Logged Injection 17:15 Nitroglycerin PHA 08/24/24 Logged Sublingual (Ntrostat 17:15 Morphine Sulfate PHA 08/24/24 Logged Injection 17:15 Oxygen By Nasal RT 08/24/24 Transmitted Cannula 17:09 Stat Ekg For Chest [facility] 08/24/24 In Process Pain 17:09 Notify Of Changes [facility] 08/24/24 In Process From Base 17:09 Licensed Architect For [facility] 08/24/24 In Process 24 Hours 17:09 Emergency Dysrhythmia [facility] 08/24/24 In Process Protocol 17:09 Rhythm Strips Once [facility] 08/24/24 In Process Every Shift 17:09 L Wrist 2 View Xray XY 08/24/24 Logged 17:09 R Wrist 2 View Xray XY 08/24/24 Logged 17:09 B-Type Natriuretic LAB 08/24/24 Logged Peptide 17:09 Blood Alcohol LAB 08/24/24 Logged 17:09 C-Reactive Protein LAB 08/24/24 Logged 17:09 Complete Blood Count LAB 08/24/24 Logged 17:09 Comprehensive LAB 08/24/24 Logged Metabolic Panel 17:09 Covid19 Antigen Noemy LAB 08/24/24 Logged Drug Screen LAB 08/24/24 Logged 17:09 Hemoglobin A1c LAB 08/24/24 Logged 17:09 Erythrocyte LAB 08/24/24 Logged Sedimentation Rate 17:09 Lactic Acid W/ Reflex LAB 08/24/24 Logged Order 17:09 Magnesium LAB 08/24/24 Logged 17:09 PTPTT LAB 08/24/24 Logged 17:09 Vitamin B12 LAB 08/24/24 Logged 17:09 Vitamin D, 25-Hydroxy LAB 08/24/24 Logged 17:09 Urinalysis LAB 08/24/24 Logged 17:09 Thyroid Stimulating LAB 08/24/24 Logged Hormone 17:09 Rapid Influenza A&B LAB 08/24/24 Logged 17:09 Uric Acid LAB 08/24/24 Logged 17:09 Colchicine (Colcrys) PHA 08/24/24 Logged 17:15 Colchicine (Colcrys) PHA 08/25/24 Logged 09:00 Methylprednisolone PHA 08/24/24 Logged Sod Succ (Solu Medrol 17:15 Glucose Blood PHA 08/24/24 Logged (Accu-Chek Comfort 22:00 Insulin R (Human) PHA 08/24/24 Logged (Insulin R) 22:00 Insulin R (Human) PHA 08/25/24 Logged (Insulin R) 07:00 Dextrose 50% Syringe PHA 08/24/24 Logged 17:15 Date of Service: August 24, 2024 Billing Provider: RAFA HAWLEY MD Common Visit Codes: [id number] INP/OBS CARE (HIGH) ASIYA PRUITT RESIDENT August 24, 2024 17:23 RAFA HAWLEY MD August 25, 2024 10:00
[2024-08-24] MEDS: methylPREDNISolone SOD SUCC 125 MG/2 ML VL IV ONE (17:45)
[2024-08-24 17:54] LABS: Basophils # (auto) 0 10 ^3/uL (0-0.2); Basophils % (auto) 0.3 % (0.0-2.0); Eosinophils # (auto) 0 10 ^3/uL (0-0.8); Hematocrit 44.3 % (41.0-53.0); Hemoglobin 15.1 g/dL (13.5-17.5); Lymphocytes # (auto) 2.5 10 ^3/uL (0.4-5.4); Lymphocytes % (auto) 18.6 % (10.0-50.0); Mean Corpuscular Hemoglobin 27.8 pg (28.0-32.0); Mean Corpuscular Volume 81.7 fL (80.0-100.0); Monocytes # (auto) 1.1 10 ^3/uL (0-1.3); Neutrophils # (auto) 9.9 10 ^3/uL (1.6-8.6); Neutrophils % (auto) 73.1 % (37.0-80.0); Platelet Count (auto) 334 10^3/uL (140-450); Red Blood Cells 5.42 10^6/uL (4.5-5.90); Red Cell Distribution Width 15.3 % (11.8-14.3); White Blood Cell 13.6 10^3/uL (4.4-10.8)
[2024-08-24 18:04] LABS: INR 1.01 (0.9-1.15); Partial Thromboplastin Time 26.6 SEC (24.5-34.5); Prothrombin Time 10.7 sec (9.3-11.8)
[2024-08-24 18:05] LABS: Alanine Aminotransferase 20 U/L (7-40); Albumin 4.6 g/dL (3.2-4.8); Alkaline Phosphatase 98 U/L (46-116); Anion Gap 10 (5-15); BUN/Creatinine Ratio 9.8 (10.0-20.0); Blood Urea Nitrogen 10 mg/dL (9-23); Calcium 10.3 mg/dL (8.7-10.4); Carbon Dioxide 22 mmol/L (20-31); Chloride 106 mmol/L (98-107); Potassium 3.7 mmol/L (3.5-5.1); Sodium 138 mmol/L (136-145); Total Protein 7.2 g/dL (5.7-8.2)
[2024-08-24 18:06] LABS: Bilirubin, Total 0.7 mg/dL (0.2-1.0)
[2024-08-24 18:10] LABS: Aspartate Aminotransferase 11 U/L (13-40); Blood Alcohol < 3.0 mg/dL (<10); Glucose 321 mg/dL (74-106)
[2024-08-24 18:21] VITALS: PULSE 119; RESP 20; O2SAT 94
[2024-08-24 18:22] VITALS: BP 112/72; PULSE 119; RESP 14; TEMP 98.4; O2SAT 94
[2024-08-24 18:23] LABS: Uric Acid 5.1 mg/dL (3.7-9.2)
[2024-08-24 18:31] LABS: Lactic Acid w/Reflex 2.5 mmol/L (0.4-2.0)
[2024-08-24] MEDS ORDERED: DULO1CAP5 PO (18:43)
[2024-08-24] MEDS ORDERED: METF-490 PO (18:43)
[2024-08-24] MEDS ORDERED: HYDR-3682 PO (18:43)
[2024-08-24] MEDS ORDERED: PRED10TA PO (18:43)
[2024-08-24] MEDS ORDERED: TRAZ-227 PO (18:43)
[2024-08-24 18:54] LABS: Erythrocyte Sedimentation Rate 16 mm/hr (0-20)
[2024-08-24] MEDS: MORPHINE SULFATE 4 MG/ML SYR/VIAL IV PRN (19:02)
--- NOTE | 2024-08-24 19:49 | DVH ---
EXAM: XY R WRIST 2 VIEW XRAY INDICATION: Swelling, red, tender TECHNIQUE: 2 views of the right wrist COMPARISON: None FINDINGS/IMPRESSION: No radiographic evidence of an acute osseous abnormality. There is no acute fracture, osseous malalig nment, or aggressive focal osseous lesion. There is no radiographically apparent joint space narrowin g.
--- NOTE | 2024-08-24 19:49 | DVH ---
EXAM: XY L WRIST 2 VIEW XRAY INDICATION: Swelling, red, tender TECHNIQUE: 2 views of the left wrist COMPARISON: None FINDINGS/IMPRESSION: No radiographic evidence of an acute osseous abnormality. There is no acute fracture, osseous malalig nment, or aggressive focal osseous lesion. There is no radiographically apparent joint space narrowin g.
[2024-08-24 20:00] VITALS: PULSE 99; RESP 16
[2024-08-24] MEDS: HYDROcodone-ACET 5/325MG TAB PO PRN (20:15)
[2024-08-24 21:00] VITALS: BP 119/81; PULSE 118; RESP 18; TEMP 98.1; O2SAT 95
[2024-08-24] MEDS: ACCU-CHEK COMFORT CURVE STRIP VI SCH (22:13)
[2024-08-24] MEDS: InsuLIN REG 1unit/0.01ml Soln (100units/ml) SC SCH (22:21)
[2024-08-25] VITALS (8 sets, daily range): BP systolic 112–120; BP diastolic 70–84; PULSE 65–110; RESP 16–20; TEMP 97.1–98.4; O2SAT 93–97
[2024-08-25] MEDS: PANTOPRAZOLE 40 MG TAB PO SCH (05:30)
[2024-08-25] MEDS: InsuLIN REG 1unit/0.01ml Soln (100units/ml) SC SCH (06:30)
[2024-08-25 07:24] LABS: Basophils # (auto) 0 10 ^3/uL (0-0.2); Basophils % (auto) 0.2 % (0.0-2.0); Eosinophils # (auto) 0 10 ^3/uL (0-0.8); Hemoglobin 14.1 g/dL (13.5-17.5); Lymphocytes # (auto) 1.5 10 ^3/uL (0.4-5.4); Lymphocytes % (auto) 9.1 % (10.0-50.0); Mean Corpuscular Hemoglobin 27.5 pg (28.0-32.0); Mean Corpuscular Hgb Conc. 33.6 g/dL (32.0-36.0); Mean Corpuscular Volume 81.9 fL (80.0-100.0); Monocytes # (auto) 0.2 10 ^3/uL (0-1.3); Monocytes % (auto) 1.4 % (0.0-12.0); Neutrophils # (auto) 14.5 10 ^3/uL (1.6-8.6); Neutrophils % (auto) 89.3 % (37.0-80.0); Platelet Count (auto) 370 10^3/uL (140-450); Red Blood Cells 5.13 10^6/uL (4.5-5.90); Red Cell Distribution Width 14.8 % (11.8-14.3); White Blood Cell 16.3 10^3/uL (4.4-10.8)
[2024-08-25 07:48] LABS: Alanine Aminotransferase 18 U/L (7-40); Alkaline Phosphatase 94 U/L (46-116); Anion Gap 13 (5-15); BUN/Creatinine Ratio 12.6 (10.0-20.0); Blood Urea Nitrogen 12 mg/dL (9-23); Calcium 9.9 mg/dL (8.7-10.4); Carbon Dioxide 21 mmol/L (20-31); Chloride 104 mmol/L (98-107); Potassium 3.9 mmol/L (3.5-5.1); Sodium 138 mmol/L (136-145)
[2024-08-25 07:49] LABS: Albumin 4.4 g/dL (3.2-4.8)
[2024-08-25 07:50] LABS: Bilirubin, Total 0.8 mg/dL (0.2-1.0); Glucose 327 mg/dL (74-106)
[2024-08-25 07:51] LABS: Aspartate Aminotransferase < 8 U/L (13-40)
[2024-08-25 08:11] LABS: Urine Bacteria None Seen /hpf (None Seen)
[2024-08-25 08:31] LABS: Barbiturate Scree,Urine Neg (NEGATIVE); Opiate Scree,Urine Pos (NEGATIVE); Phencyclidine Screen, Urine Neg (NEGATIVE)
[2024-08-25 08:32] LABS: Amphetamine Screen, Urine Neg (NEGATIVE); Benzodiazephine Screen, Urine Neg (NEGATIVE); Cannabinoid Screen, Urine Neg (NEGATIVE); Cocaine Screen, Urine Neg (NEGATIVE)
[2024-08-25 08:43] LABS: Urine Blood Negative /uL (Negative); Urine Clarity Clear (Clear); Urine Color Light-Yellow (Yellow); Urine Protein, UAD Negative (Negative); Urine Specific Gravity 1.039 (1.001-1.035); Urine Squamous Epithelial Cell None Seen /hpf (<5); Urine Urobilinogen Normal (Negative); Urine WBC < 1 /HPF (0-3); Urine pH 5.5 (5.0-9.0)
[2024-08-25] MEDS: COLCHICINE 0.6 MG CAP PO SCH (09:11)
[2024-08-25] MEDS: methylPREDNISolone SOD SUCC 125 MG/2 ML VL IV SCH (09:12)
[2024-08-25] MEDS: ENOXAPARIN SOD 40 MG/0.4 ML SYRINGE SC SCH (09:13)
[2024-08-25 09:49] LABS: COVID19 ANTIGEN SOFIA FIA NEGATIVE (NEGATIVE); Rapid Influenza A Negative (Negative); Rapid Influenza B Negative (Negative)
--- NOTE | 2024-08-25 11:12 | DVHPNRES ---
Progress Note Date Seen: August 25, 2024 Resident Creating Document: ASIYA PRUITT RESIDENT Has the PT tested + for MRSA If YES, has PT been informed?: No Medical Necessity Reason Pt with a Central, PICC or Fol: No Subjective Review of Systems Patient seen and examined at the bedside. Patient reported improvement in his joint pains since admission, reported improvement in his swelling and other symptoms. Patient reported no new symptoms at this time. Patient reports: No new complaints, Feels better Objective vital signs Vital Sign Date Time Temp Pulse Resp B/P (MAP) Pulse Ox O2 Delivery O2 Flow Rate FiO2 08/25/24 09:15 65 20 117/70 08/25/24 09:00 97.1 97 97.1 08/25/24 08:00 Room Air* 0 21 Total Intake and Output 08/24/24 08/24/24 08/25/24 15:00 23:00 07:00 Intake Total 460 ml Output Total 1450 ml Balance -990 ml medications Current Medications Medications Dose Ordered Sig/Norberto Route Start Time Stop Time Status Last Admin Dose Admin Sodium Chloride 1,000 ml @ 120 mls/hr Q8H20M IV 08/24/24 17:15 08/25/24 03:50 120 MLS/HR Acetaminophen/ Hydrocodone Bitart 1 tab Q4HP PRN PO 08/24/24 17:15 08/25/24 05:30 1 TAB Ondansetron HCl 4 mg Q4HP PRN IV 08/24/24 17:15 Enoxaparin Sodium 40 mg DAILY SC 08/25/24 10:00 08/25/24 09:13 40 MG Acetaminophen 650 mg Q6HP PRN PO 08/24/24 17:15 Morphine Sulfate 2 mg Q4HPRN PRN IV 08/24/24 17:15 08/25/24 09:15 2 MG Nitroglycerin 0.4 mg Q5MINP PRN SL 08/24/24 17:15 Morphine Sulfate 2 mg Q30M PRN IV 08/24/24 17:15 Colchicine 0.6 mg Q12HR PO 08/25/24 09:00 08/25/24 09:11 0.6 MG Methylprednisolone Sodium Succinate 60 mg BID IV 08/25/24 10:00 08/25/24 09:12 60 MG Diagnostic Test (Pha) 1 strip ACHS 08/24/24 22:00 08/25/24 07:00 1 STRIP Insulin Human Regular HS SC 08/24/24 22:00 08/24/24 22:21 10 UNITS Insulin Human Regular AC SC 08/25/24 07:00 08/25/24 06:30 9 UNITS Dextrose 50 ml UD PRN IV 08/24/24 17:15 Pantoprazole Sodium 40 mg DAILY@0600 PO 08/25/24 06:00 08/25/24 05:30 40 MG Insulin Glargine 10 units HS SC 08/25/24 22:00 Examination Pt is lying on bed General Appearance: Alert, Oriented X3, Cooperative, no distress HEENT: Atraumatic, Mucous membranes moist/pink Respiratory: Clear to auscultation, Normal air movement, No added sounds Cardiovascular: Regular rate, Normal S1, Normal S2, No murmurs Abdominal: Active bowel sounds, Soft, no distention, no tenderness Extremities: No edema, Normal pulses, bilateral breast tenderness, redness, warmth, swollenImproved since admission Skin: No Significant rash, except past surgical scars Neuro: Normal speech, sensorimotor deficits none Psych/Mental Status: Mental status NL, Mood NL Nurse was there as technical sales associate during examination laboratory and microbiology Laboratory Tests 08/25/24 05:39 Test 08/25/24 05:39 Range/Units Serum Glucose 327 H 74-106 mg/dL Labs and/or images reviewed: Labs reviewed by me, Image(s) reviewed by me Problem List/Assessment/Plan Problem List/Assessment/Plan # rheumatoid arthritis flare # Ruled out gouty arthritis flare # leukocytosis likely reactive due to pain - ordered bilateral wrist x-ray, no abnormalities - uric acid & ESR normal but elevated CRP - started on colchicine 1.2 loading dose followed by 0.6 b.i.d. but discontinued - started methylprednisolone 60 mg b.i.d. - pain management with morphine and [place] as needed -physical therapy # Uncontrolled type 2 DM with hyperglycemia, pending HbA1c >10- moderate insulin sliding scale and Accu-Cheks and Lantus 10 units Protonix Lovenox Cardiac diet Goals of care discussed with the patient for more than 29 minutes: Full code status Case discussed with Dr. Rice, patient and nurse Plan discussed with: Patient, Spouse My Orders My Orders Orders - ASIYA PRUITT RESIDENT Procedure Category Date Status Time Admit ADMIT 08/24/24 Transmitted 17:09 Allergies ROBERT 08/24/24 In Process 17:09 Code Status CODE 08/24/24 Transmitted 17:09 Sodium Chloride 0.9% PHA 08/24/24 In Process 17:15 Hydrocodone-Acet PHA 08/24/24 In Process 5/325mg Tab ([place] 17:15 Ondansetron Hcl PHA 08/24/24 In Process (Zofran) 17:15 Enoxaparin Sodium PHA 08/25/24 In Process (Lovenox) 10:00 Condition: Stable ROBERT 08/24/24 In Process 17:09 Acetaminophen Tablet PHA 08/24/24 In Process (Tylenol Tablet) 17:15 Nitroglycerin PHA 08/24/24 In Process Sublingual (Ntrostat 17:15 Morphine Sulfate PHA 08/24/24 In Process Injection 17:15 Oxygen By Nasal RT 08/24/24 Transmitted Cannula 17:09 Stat Ekg For Chest ROBERT 08/24/24 In Process Pain 17:09 Notify Of Changes ROBERT 08/24/24 In Process From Base 17:09 Technology Services Manager For [facility] 08/24/24 In Process 24 Hours 17:09 Emergency Dysrhythmia ROBERT 08/24/24 In Process Protocol 17:09 Rhythm Strips Once ROBERT 08/24/24 In Process Every Shift 17:09 L Wrist 2 View Xray XY 08/24/24 Resulted 17:09 R Wrist 2 View Xray XY 08/24/24 Resulted 17:09 Colchicine (Colcrys) PHA 08/25/24 In Process 09:00 Glucose Blood PHA 08/24/24 In Process (Accu-Chek Comfort 22:00 Insulin R (Human) PHA 08/24/24 In Process (Insulin R) 22:00 Insulin R (Human) PHA 08/25/24 In Process (Insulin R) 07:00 Dextrose 50% Syringe PHA 08/24/24 In Process 17:15 Morphine Sulfate PHA 08/24/24 In Process Injection 17:15 Methylprednisolone PHA 08/25/24 In Process Sod Succ (Solu Medrol 10:00 Insulin Lantus PHA 08/25/24 In Process (Glargine) (Lantus) 22:00 Consistent DIET 08/25/24 Transmitted Carb(Ccho)Diabetes Lunch ASIYA PRUITT RESIDENT August 25, 2024 11:12
[2024-08-25] MEDS: INSULIN LANTUS (GLARGINE) 1 /0.01ml (100units/ml) SC SCH (11:59)
[2024-08-25] MEDS ORDERED: INSULIN LANTUS (GLARGINE) 1 /0.01ml (100units/ml) SC SCH (22:00)
[2024-08-26] VITALS (8 sets, daily range): BP systolic 104–131; BP diastolic 70–87; PULSE 69–97; RESP 15–19; TEMP 97.4–98.8; O2SAT 95–97
[2024-08-26 07:50] LABS: Basophils # (auto) 0 10 ^3/uL (0-0.2); Basophils % (auto) 0.2 % (0.0-2.0); Eosinophils # (auto) 0 10 ^3/uL (0-0.8); Hematocrit 38.1 % (41.0-53.0); Hemoglobin 12.9 g/dL (13.5-17.5); Lymphocytes # (auto) 1.5 10 ^3/uL (0.4-5.4); Lymphocytes % (auto) 8.1 % (10.0-50.0); Mean Corpuscular Hemoglobin 27.7 pg (28.0-32.0); Mean Corpuscular Hgb Conc. 33.9 g/dL (32.0-36.0); Mean Corpuscular Volume 81.7 fL (80.0-100.0); Monocytes # (auto) 0.3 10 ^3/uL (0-1.3); Monocytes % (auto) 1.8 % (0.0-12.0); Neutrophils # (auto) 16.2 10 ^3/uL (1.6-8.6); Neutrophils % (auto) 89.9 % (37.0-80.0); Platelet Count (auto) 338 10^3/uL (140-450); Red Blood Cells 4.66 10^6/uL (4.5-5.90); Red Cell Distribution Width 14.9 % (11.8-14.3)
[2024-08-26 08:10] LABS: Alanine Aminotransferase 13 U/L (7-40); Alkaline Phosphatase 80 U/L (46-116); Anion Gap 8 (5-15); BUN/Creatinine Ratio 17.5 (10.0-20.0); Blood Urea Nitrogen 14 mg/dL (9-23); Calcium 9.6 mg/dL (8.7-10.4); Carbon Dioxide 22 mmol/L (20-31); Magnesium 2.2 mg/dL (1.6-2.6); Potassium 4.1 mmol/L (3.5-5.1); Sodium 139 mmol/L (136-145); Total Protein 6.4 g/dL (5.7-8.2)
[2024-08-26 08:11] LABS: Bilirubin, Total 0.5 mg/dL (0.2-1.0)
[2024-08-26 08:13] LABS: Aspartate Aminotransferase < 8 U/L (13-40); Chloride 109 mmol/L (98-107); Glucose 255 mg/dL (74-106)
[2024-08-26] MEDS ORDERED: HYDROcodone-ACET 5/325MG TAB PO PRN (10:00)
--- NOTE | 2024-08-26 10:45 | DVHPNRES ---
Progress Note Date Seen: August 26, 2024 Resident Creating Document: ASIYA PRUITT RESIDENT Has the PT tested + for MRSA If YES, has PT been informed?: No Medical Necessity Reason Pt with a Central, PICC or Fol: No Subjective Review of Systems Patient seen and examined at the bedside. Patient reported that he is very happy that her symptoms has been improved significantly, reported no new complaints at this time. We will cut down the pain medications, switched IV prednisolone to oral. Patient reports: Feels better Objective vital signs Vital Sign Date Time Temp Pulse Resp B/P (MAP) Pulse Ox O2 Delivery O2 Flow Rate FiO2 08/26/24 09:00 97.4 69 17 113/70 (84) 97 97.4 08/25/24 20:00 Room Air* 0 21 Total Intake and Output 08/25/24 08/25/24 08/26/24 15:00 23:00 07:00 Intake Total 800 ml 1400 ml 1300 ml Output Total 1500 ml 1100 ml Balance 800 ml -100 ml 200 ml medications Current Medications Medications Dose Ordered Sig/Norberto Route Start Time Stop Time Status Last Admin Dose Admin Sodium Chloride 1,000 ml @ 120 mls/hr Q8H20M IV 08/24/24 17:15 08/26/24 08:10 120 MLS/HR Ondansetron HCl 4 mg Q4HP PRN IV 08/24/24 17:15 Enoxaparin Sodium 40 mg DAILY SC 08/25/24 10:00 08/26/24 09:36 40 MG Acetaminophen 650 mg Q6HP PRN PO 08/24/24 17:15 Methylprednisolone Sodium Succinate 60 mg BID IV 08/25/24 10:00 08/26/24 09:35 60 MG Diagnostic Test (Pha) 1 strip ACHS 08/24/24 22:00 08/26/24 05:56 1 STRIP Insulin Human Regular HS SC 08/24/24 22:00 08/25/24 22:09 10 UNITS Insulin Human Regular AC SC 08/25/24 07:00 08/26/24 05:59 9 UNITS Dextrose 50 ml UD PRN IV 08/24/24 17:15 Pantoprazole Sodium 40 mg DAILY@0600 PO 08/25/24 06:00 08/26/24 05:56 40 MG Insulin Glargine 10 units BID SC 08/25/24 11:30 08/26/24 09:43 10 UNITS Acetaminophen/ Hydrocodone Bitart 1 tab Q6HPRN PRN PO 08/26/24 10:00 UNV Examination Pt is lying on bed General Appearance: Alert, Oriented X3, Cooperative, no distress HEENT: Atraumatic, Mucous membranes moist/pink Respiratory: Clear to auscultation, Normal air movement, No added sounds Cardiovascular: Regular rate, Normal S1, Normal S2, No murmurs Abdominal: Active bowel sounds, Soft, no distention, no tenderness Extremities: No edema, Normal pulses, bilateral wrist tenderness, redness, warmth, swelling improved since admission Skin: No Significant rash, except past surgical scars Neuro: Normal speech, sensorimotor deficits none Psych/Mental Status: Mental status NL, Mood NL Nurse was there as meat stocker during examination laboratory and microbiology Laboratory Tests 08/26/24 06:57 Test 08/26/24 06:57 Range/Units Serum Glucose 255 H 74-106 mg/dL Labs and/or images reviewed: Labs reviewed by me, Image(s) reviewed by me Problem List/Assessment/Plan Problem List/Assessment/Plan # Rheumatoid arthritis flare # Ruled out gouty arthritis flare # leukocytosis likely reactive due to pain - ordered bilateral wrist x-ray, no abnormalities - uric acid & ESR normal but elevated CRP - started on colchicine 1.2 loading dose followed by 0.6 b.i.d. but discontinued - Initially methylprednisolone 60 mg b.i.d., today 08/26/2024 switched to 80 mg daily prednisone - pain management with morphine and [place] as needed, today discontinued IV morphine and changed to [place] q.6 - physical therapy on board # Uncontrolled type 2 DM with hyperglycemia, pending HbA1c >10 %- moderate insulin sliding scale and Accu-Cheks and Lantus 15 units twice a day Protonix Lovenox Cardiac diet Goals of care discussed with the patient for 20 minutes: Full code status Case discussed with Dr. Campa, patient and nurse Plan discussed with: Patient, Spouse, Other (Nurse) My Orders My Orders Orders - ASIYA PRUITT RESIDENT Procedure Category Date Status Time Consistent DIET 08/25/24 Transmitted Carb(Ccho)Diabetes Lunch Insulin Lantus PHA 08/25/24 In Process (Glargine) (Lantus) 11:30 Pt Request For Service PT 08/25/24 Logged 11:30 Hydrocodone-Acet PHA 08/26/24 Logged 5/325mg Tab ([place] 10:00 Prednisone Tablet PHA 08/27/24 Logged 10:00 Complete Blood Count LAB 08/27/24 Verified 04:00 Basic Metabolic Panel LAB 08/27/24 Verified 04:00 Addendum Addendum Addendum I was physically present for the wiley portions of the service provided to patient by THE RESIDENT. I have reviewed the documentation, discussed the case with resident and agree with the resident's documentation except as noted. Also the patient's clinical case was discussed with the patient's nurse. This medical document was created using an electronic medical record system with computerized dictation system. Although this document has been carefully reviewed, there might still be some phonetic and typographical errors. These areas are purely typographical due to imperfections of the software programs, and do not reflect any compromise in the patient's medical care. Late signature. Date of Service: August 26, 2024 Billing Provider: EVETTE CAMPA MD Common Visit Codes: [id number] INP/OBS CARE(HIGH) Secondary Visit Codes: [id number] CARE PLAN 30 MINUTES (20 minutes) ASIYA PRUITT RESIDENT August 26, 2024 10:45 EVETTE CAMPA MD August 27, 2024 06:33
[2024-08-26] MEDS: HYDROcodone-ACET 10/325MG TAB PO PRN (12:37)
[2024-08-26] MEDS: INSULIN LANTUS (GLARGINE) 1 /0.01ml (100units/ml) SC SCH (21:45)
[2024-08-27 01:00] VITALS: BP 109/67; PULSE 74; RESP 15; TEMP 97.5; O2SAT 96
[2024-08-27 05:00] VITALS: BP 103/64; PULSE 65; RESP 15; TEMP 98; O2SAT 93
[2024-08-27 07:59] LABS: Anion Gap 8 (5-15); Carbon Dioxide 24 mmol/L (20-31); Sodium 142 mmol/L (136-145)
[2024-08-27 08:00] VITALS: PULSE 68; RESP 17; O2SAT 94
[2024-08-27 08:00] LABS: Calcium 9.3 mg/dL (8.7-10.4); Chloride 110 mmol/L (98-107); Potassium 3.3 mmol/L (3.5-5.1)
[2024-08-27 08:05] LABS: BUN/Creatinine Ratio 16.5 (10.0-20.0); Blood Urea Nitrogen 14 mg/dL (9-23)
[2024-08-27 08:08] LABS: Glucose 109 mg/dL (74-106)
[2024-08-27 08:26] LABS: Hematocrit 36.8 % (41.0-53.0); Hemoglobin 12.2 g/dL (13.5-17.5); Mean Corpuscular Hemoglobin 27.1 pg (28.0-32.0); Mean Corpuscular Hgb Conc. 33.3 g/dL (32.0-36.0); Mean Corpuscular Volume 81.4 fL (80.0-100.0); Platelet Count (auto) 350 10^3/uL (140-450); Red Blood Cells 4.52 10^6/uL (4.5-5.90); Red Cell Distribution Width 15.1 % (11.8-14.3); White Blood Cell 12.4 10^3/uL (4.4-10.8)
[2024-08-27 08:33] LABS: Basophils % (manual) 0 (0.0-2.0); Blast Cells 0; Eosinophils % (manual) 0 (0-7); Myelocytes % 0; Promyelocytes % 0
[2024-08-27 09:00] VITALS: BP 109/79; PULSE 68; RESP 17; TEMP 97.9; O2SAT 94
[2024-08-27 09:43] LABS: Anisocytosis Slight; Band Neutrophils % (manual) 3; Lymphocytes % (manual) 24 (10.0-50.0); Metamyelocytes % 1; Monocytes % (manual) 6 (0-12); Platelet Estimate Adequate; Reactive Lymphocytes 1
[2024-08-27] MEDS: POTASSIUM EFFERVESENT TAB 25 MEQ PO ONE (09:57)
[2024-08-27] MEDS: predniSONE 20 MG TAB PO SCH (09:57)
[2024-08-27] MEDS ORDERED: HYDR-4902 PO (11:05)
[2024-08-27] MEDS ORDERED: GLUC-224 VI (12:04)
[2024-08-27] MEDS ORDERED: LANC-209 XX (12:04)
[2024-08-27] MEDS ORDERED: INSUINJ37 SC (12:04)
[2024-08-27] MEDS ORDERED: BLOO-169 XX (12:04)
[2024-08-27] MEDS ORDERED: ISOP70MI2 EX (12:04)
[2024-08-27] MEDS ORDERED: PRED20TA2 PO (12:11)
[2024-08-27] MEDS ORDERED: FAMO20TA10 PO (12:11)
[2024-08-27 12:49] VITALS: BP 109/79; PULSE 86; RESP 20; TEMP 98.7; O2SAT 96
[2024-08-27 13:00] VITALS: BP 119/32; PULSE 86; RESP 20; TEMP 98.2; O2SAT 96
--- NOTE | 2024-08-27 13:37 | DVHDSRES ---
Discharge Summary Date of Admission Resident Creating Document: ASIYA PRUITT RESIDENT August 24, 2024 at 17:01 Date of Discharge: August 27, 2024 Admitting Diagnosis Severe swelling/redness/pain of wrists due to rheumatoid arthritis flare-up Labs/Diagnostic Data: Laboratory Results Test 08/27/24 11:39 08/27/24 06:07 08/26/24 06:57 08/25/24 08:00 POC Glucose 243 mg/dl (70-106) White Blood Count 12.4 10^3/uL (4.4-10.8) Red Blood Count 4.52 10^6/uL (4.5-5.90) Hemoglobin 12.2 g/dL (13.5-17.5) Hematocrit 36.8 % (41.0-53.0) Mean Corpuscular Volume 81.4 fL (80.0-100.0) Mean Corpuscular Hemoglobin 27.1 pg (28.0-32.0) Mean Corpuscular Hemoglobin Concent 33.3 g/dL (32.0-36.0) Red Cell Distribution Width 15.1 % (11.8-14.3) Platelet Count 350 10^3/uL (140-450) Mean Platelet Volume 7.9 fL (6.9-10.8) Neutrophils (%) (Auto) % (37.0-80.0) Lymphocytes (%) (Auto) % (10.0-50.0) Monocytes (%) (Auto) % (0.0-12.0) Basophils (%) (Auto) % (0.0-2.0) Neutrophils # (Auto) 10 ^3/uL (1.6-8.6) Lymphocytes # (Auto) 10 ^3/uL (0.4-5.4) Monocytes # (Auto) 10 ^3/uL (0-1.3) Differential Total Cells Counted 100.0 (100) Neutrophils % (Manual) 65 (37.0-80.0) Band Neutrophils % (Manual) 3 Lymphocytes % (Manual) 24 (10.0-50.0) Monocytes % (Manual) 6 (0-12) Eosinophils % (Manual) 0 (0-7) Basophils % (Manual) 0 (0.0-2.0) Metamyelocytes % (manual) 1 Myelocytes % (Manual) 0 Promyelocytes % (Manual) 0 Blast Cells % (Manual) 0 Reactive Lymphocytes 1 Platelet Estimate Adequate Anisocytosis (manual) Slight Sodium Level 142 mmol/L (136-145) Potassium Level 3.3 mmol/L (3.5-5.1) Chloride Level 110 mmol/L (98-107) Carbon Dioxide Level 24 mmol/L (20-31) Anion Gap 8 (5-15) Blood Urea Nitrogen 14 mg/dL (9-23) Creatinine 0.85 mg/dL (0.700-1.30) Glomerular Filtration Rate Calc 109 mL/min (>90) BUN/Creatinine Ratio 16.5 (10.0-20.0) Serum Glucose 109 mg/dL (74-106) Calcium Level 9.3 mg/dL (8.7-10.4) Eosinophils (%) (Auto) 0.0 % (0.0-7.0) Eosinophils # (Auto) 0 10 ^3/uL (0-0.8) Basophils # (Auto) 0 10 ^3/uL (0-0.2) Nucleated Red Blood Cells 0.0 % Magnesium Level 2.2 mg/dL (1.6-2.6) Total Bilirubin 0.5 mg/dL (0.2-1.0) Aspartate Amino Transferase (AST) < 8 U/L (13-40) Alanine Aminotransferase (ALT) 13 U/L (7-40) Alkaline Phosphatase 80 U/L (46-116) Total Protein 6.4 g/dL (5.7-8.2) Albumin 4.0 g/dL (3.2-4.8) Urine Color Light-yellow (Yellow) Urine Clarity Clear (Clear) Urine pH 5.5 (5.0-9.0) Urine Specific [place] 1.039 (1.001-1.035) Urine Protein Negative (Negative) Urine Ketones Trace (Negative) Urine Blood Negative /uL (Negative) Urine Nitrite Negative (Negative) Urine Bilirubin Negative (Negative) Urine Urobilinogen Normal mg/dL (Negative) Urine Leukocyte Esterase Negative /uL (Negative) Urine RBC <1 /hpf (0 - 3) Urine Microscopic WBC < 1 /HPF (0-3) Urine Squamous Epithelial Cells None seen /hpf (<5) Urine Bacteria None seen /hpf (None Seen) Urine Glucose 4+ mg/dL (Normal) Urine Opiates Screen Pos (NEGATIVE) Urine Fentanyl Screen Neg (NEGATIVE) Urine Barbiturates Screen Neg (NEGATIVE) Urine Phencyclidine Screen Neg (NEGATIVE) Urine Amphetamines Screen Neg (NEGATIVE) Urine Benzodiazepines Screen Neg (NEGATIVE) Urine Cocaine Screen Neg (NEGATIVE) Urine Cannabinoids Screen Neg (NEGATIVE) Test 08/25/24 07:00 08/24/24 22:30 08/24/24 17:36 Influenza Type A Antigen Negative (Negative) Influenza Type B Antigen Negative (Negative) SARS-CoV-2 Antigen (Rapid) Negative (NEGATIVE) Lactic Acid Level 1.4 mmol/L (0.4-2.0) Erythrocyte Sedimentation Rate 16 mm/hr (0-20) Prothrombin Time 10.7 sec (9.3-11.8) Prothrombin Time INR 1.01 (0.9-1.15) Activated Partial Thromboplast Time 26.6 SEC (24.5-34.5) Hemoglobin A1c 10.1 % A1C (<5.7) Uric Acid 5.1 mg/dL (3.7-9.2) C-Reactive Protein High Sensitivity 2.70 mg/dL (<1.0) B-Type Natriuretic Peptide 3.14 pg/mL (0-100) Vitamin B12 Level 426 pg/mL (211-911) Vitamin D 25-Hydroxy 29.3 ng/mL (30.0-100) Thyroid Stimulating Hormone (TSH) 0.81 uIU/mL (0.55-4.78) Plasma/Serum Blood Alcohol < 3.0 mg/dL (<10) Other Laboratory Tests 08/27/24 06:07 Brief Hx & Hospital Course: david Patrick is a 42 years old male with a history of COPD, rheumatoid arthritis, gouty arthritis, HLD, type 2 DM uncontrolled admitted to the hospital with a chief complaints of severe redness, swelling of bilateral wrists. patient was being sent from the primary clinic for the treatment of possible flare-up of rheumatoid arthritis/gouty arthritis. 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 The patient's symptoms has been getting worsening for last 2 weeks which prompted him to visit hospital. Patient denies fever, nausea, vomiting, chest pain, abdominal pain, trauma, and other associated symptoms at this time. The patient was admitted with a rheumatoid arthritis flare, with gouty arthritis ruled out based on normal uric acid and ESR levels, though CRP was elevated. Bilateral wrist X-rays showed no abnormalities. The patient initially received colchicine (1.2 mg loading dose followed by 0.6 mg twice daily), which was later discontinued. Methylprednisolone 60 mg twice daily was started and transitioned to prednisone 80 mg daily on August 26, 2024. Pain was managed with IV morphine and Cor[place] as needed; IV morphine was discontinued and replaced with [place] every six hours. Physical therapy was involved in the care plan. The patient also had uncontrolled type 2 diabetes mellitus with hyperglycemia (HbA1c >10%) managed with moderate sliding scale insulin, regular blood glucose monitoring, and Lantus 15 units twice daily. Upon discharge, the patient was hemodynamically stable and in improved condition. The discharge regimen included prednisone 40 mg daily for 14 days, Pepcid daily for 14 days, and Lantus 10 units twice daily with continued blood glucose monitoring and charting. The patient was advised to follow up with the discharge clinic, primary care provider, and rheumatology clinic. Counseling was provided on healthy lifestyle modifications, including diet and exercise. Physical examination on day of discharge: Pt is lying on bed General Appearance: Alert, Oriented X3, Cooperative, no distress HEENT: Atraumatic, Mucous membranes moist/pink Respiratory: Clear to auscultation, Normal air movement, No added sounds Cardiovascular: Regular rate, Normal S1, Normal S2, No murmurs Abdominal: Active bowel sounds, Soft, no distention, no tenderness Extremities: No edema, Normal pulses, bilateral wrist tenderness, redness, warmth, swelling improved since admission Skin: No Significant rash, except past surgical scars Neuro: Normal speech, sensorimotor deficits none Psych/Mental Status: Mental status NL, Mood NL Nurse was there as 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 Campa Operations or Procedures XY R& L WRIST 2 VIEW XRAY No radiographic evidence of an acute osseous abnormality. There is no acute fracture, osseous malalignment, or aggressive focal osseous lesion. There is no radiographically apparent joint space narrowing. 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 Patient was counseled about treatment plan, medications, possible side effects, patientverbalized understanding. All questions were answered to the best of my ability. This discharge took greater then 30 minutes in planning, reviewing documentation, counseling the patient, and discussing with other team members." ASSESSMENT ASSESSMENT Assessment # Rheumatoid arthritis flare # Ruled out gouty arthritis flare # leukocytosis likely reactive due to pain # Uncontrolled type 2 DM with hyperglycemia, pending HbA1c >10 % Addendum Addendum Addendum I was physically present for the wiley portions of the service provided to patient by THE RESIDENT. I have reviewed the documentation, discussed the case with resident and agree with the resident's documentation except as noted. Also the patient's clinical case was discussed with the patient's nurse. This medical document was created using an electronic medical record system with computerized dictation system. Although this document has been carefully reviewed, there might still be some phonetic and typographical errors. These areas are purely typographical due to imperfections of the software programs, and do not reflect any compromise in the patient's medical care. Late signature. Date of Service: August 27, 2024 Billing Provider: EVETTE CAMPA MD Common Visit Codes: 78378-TAX/OBS DISCH DAY >30min ASIYA PRUITT RESIDENT August 27, 2024 13:37 EVETTE CAMPA MD Aug 28, 2024 06:44
== END 2024-08-27 13:20 | disposition home or self-care (01) | DRG 346 ==
LOC: EAST 17:01
PROVIDERS: ADMIT Internal Medicine; ATTEND Internal Medicine
DX: M06.832 Other specified rheumatoid arthritis, left wrist (principal); D72.829 Elevated white blood cell count, unspecified; E11.65 Type 2 diabetes mellitus with hyperglycemia; J44.89 Other specified chronic obstructive pulmonary disease; E78.5 Hyperlipidemia, unspecified; M06.831 Other specified rheumatoid arthritis, right wrist; Z83.3 Family history of diabetes mellitus; Z82.49 Family history of ischemic heart disease and other diseases of the circulatory system; Z84.1 Family history of disorders of kidney and ureter; Z79.899 Other long term (current) drug therapy
CPT/HCPCS: 36415; 73100; 80048; 80053; 80307; 80320; 81001; 82306; 82607; 82962; 83036; 83605; 83735; 83880; 84443; 84550; 85007; 85025; 85027; 85610; 85652; 85730; 86141; 86431; 87426; 87804; 97163; G0378; J1815